=== PATIENT | female | born 1945 | race Caucasian/White ===

== ENCOUNTER → 2016-11-30 | Outpatient (CLI) | payer MEDICARE, BC ==
--- NOTE | 2016-12-02 07:59 | MM ---
Reason for exam: screening (asymptomatic). Last mammogram was performed 1 year and 1 month ago. History: Patient is postmenopausal and has history of other cancer at age 29. Took estrogen for 2 years. Took progesterone for 2 years. Physical Findings: A clinical breast exam by your physician is recommended on an annual basis and results should be correlated with mammographic findings. MG 3D Screening Mammo W/Cad Bilateral CC and MLO view(s) were taken. Prior study comparison: November 10, 2015, bilateral MG screening mammo w CAD. November 08, 2014, bilateral MG screening mammo w CAD. September 28, 2013, bilateral digital screening mammo w/CAD. There are scattered fibroglandular densities. Finding: There are typically benign vascular, round calcifications in both breasts, greater in the left breast. There is no discrete abnormality. ASSESSMENT: Benign, BI-RAD 2 RECOMMENDATION: Routine screening mammogram of both breasts in 1 year.
== END ==
LOC: RADMAMWWP 11:14
PROVIDERS: ATTEND Obstetrics & Gynecology
DX: Z12.31 Encounter for screening mammogram for malignant neoplasm of breast (principal)
CPT/HCPCS: 77063; G0202

== ENCOUNTER → 2016-12-01 | Outpatient (CLI) | payer MEDICARE, BC | END | disposition home or self-care (01) | LOC: LABPAT 14:06 | PROVIDERS: ATTEND Family Medicine | DX: Z01.810 Encounter for preprocedural cardiovascular examination (principal) | CPT/HCPCS: 93005 ==

== ENCOUNTER → 2016-12-04 | Outpatient (CLI) | payer MEDICARE, BC ==
[2016-12-04 09:35] LABS: Basophils % (A) 1 %; CH 30.2; Eosinophils # (A) 0.1 k/uL (0-0.7); Eosinophils % (A) 3 %; HCT 40.6 % (34.0-46.0); HDW 2.02; Luc # (Auto) 0.16; Luc % (Auto) 3; Lymphocytes # (A) 2.3 k/uL (1.0-4.8); Lymphocytes % (A) 40 %; MCH 30.2 pg (25.0-35.0); MCHC 31.9 g/dL (31.0-37.0); MCV 94.8 fL (80.0-100.0); Mean Platelet Volume 7.7; Monocytes # (A) 0.4 k/uL (0-1.0); Monocytes % (A) 6 %; Neutrophils # (A) 2.7 k/uL (1.3-7.7); Neutrophils % (A) 48 %; RBC 4.29 m/uL (3.80-5.40); RDW 12.8 % (11.5-15.5); WBC 5.7 k/uL (3.8-10.6); WBC (Perox) 5.85
[2016-12-04 09:51] LABS: Anion Gap 9 mmol/L; Blood Urea Nitrogen 15 mg/dL (7-17); Carbon Dioxide 26 mmol/L (22-30); Chloride 106 mmol/L (98-107); Non-African American GFR(MDRD) >60 (>60 ml/min/1.73 sqM); Potassium 3.8 mmol/L (3.5-5.1); Sodium 141 mmol/L (137-145)
== END ==
LOC: LABWHC1 08:56
PROVIDERS: ATTEND Obstetrics & Gynecology
DX: Z01.812 Encounter for preprocedural laboratory examination (principal); R35.0 Frequency of micturition; N81.10 Cystocele, unspecified; N81.4 Uterovaginal prolapse, unspecified
CPT/HCPCS: 80051; 82565; 84520; 85025; 86850; 86900; 86901; 87086

== ENCOUNTER 2016-12-14 07:25 | Day surgery (SDC) | payer MEDICARE, BC ==
[2016-12-02 12:07] VITALS: BMI 31.4
[~2016-12-14 07:25] MED LIST: DEXAMETHASONE SOD PHOSPHATE 10 MG/ML 1 ML VIAL IV ONE; LIDOCAINE 1% 20 ML VIAL (10MG/ML) FOR IV START INTRADERMA PRN; MIDAZOLAM 2 MG/2 ML VIAL IV PRN; ONDANSETRON 4 MG/2 ML VIAL IVP ONE; SCOPOLAMINE 1.5MG/72HR PATCH TRANSDERM ONE; ceFAZolin 2 GM in SODIUM CHLORIDE 0.9% 100 ML IVPB ONE
[2016-12-14] MEDS: LACTATED RINGERS 1,000 ML IV SCH (08:00)
[2016-12-14] MEDS ORDERED: fentaNYL (PF) 50 MCG/ML 2 ML AMP ONE (10:32)
[2016-12-14] MEDS ORDERED: SUCCINYLCHOLINE CHLORIDE 100 MG/5 ML SYR IV ONE (10:32)
[2016-12-14] MEDS ORDERED: PROPOFOL 10 MG/ML 20 ML VIAL IV ONE (10:32)
[2016-12-14] MEDS ORDERED: ONDANSETRON 4 MG/2 ML VIAL ONE (10:32)
[2016-12-14] MEDS ORDERED: LIDOCAINE 1% INJ 10MG/ML (20 ML MDV) ONE (10:32)
[2016-12-14] MEDS ORDERED: MIDAZOLAM 2 MG/2 ML VIAL ONE (10:32)
[2016-12-14] MEDS ORDERED: GLYCOPYRROLATE 0.2 MG/ML 2 ML VIAL ONE (10:32)
[2016-12-14] MEDS ORDERED: SODIUM CHLORIDE 0.9% 50 ML with ceFAZolin 2,000 MG IV ONE ×2 (10:36)
[2016-12-14] MEDS ORDERED: VASOPRESSIN 20 UNIT/ML 1 ML VIAL SQ ONE (10:56)
[2016-12-14] MEDS ORDERED: BACITRACIN OINT 1 EACH PACKET TOPICAL ONE (10:57)
[2016-12-14] MEDS ORDERED: LACTATED RINGERS 1,000 ML IV ONE (11:01)
--- NOTE | 2016-12-14 11:44 | P.OP ---
Date of Procedure: 12/14/16 Preoperative Diagnosis: Grade 4 cystocele, uterine prolapse. Postoperative Diagnosis: Same Procedure(s) Performed: Vaginal hysterectomy, anterior colporrhaphy. Anesthesia: HANNAHA Surgeon: Asuncion Burnett [employer] Machine Operator #1: Donnie Mares Estimated Blood Loss (ml): 50 IV fluids (ml): 550 Urine output (ml): 325 Pathology: other (Cervix and uterus) Condition: stable Disposition: PACU Description of Procedure: Patient is brought to the operative suite and a spinal with Duramorph is given. Antibiotics are received. She is placed in the dorsal lithotomy position. The cervix vagina perineum and periurethral areas are all prepped and draped in usual sterile fashion. The appropriate timeout was performed to assure proper patient and procedural identification. Weighted speculum was placed into the vagina. Anterior lip of the cervix is grasped with a double-tooth tenaculum. Bladder is drained for approximately 325 mL of clear yellow urine. The cervix is injected circumferentially with a dilute Pitressin solution. A [place] blade scalpel is used to incise the mucosa circumferentially with a V like positioning in the back. Sponge rolled finger is used to sweep the anterior mucosa from the underlying fascial plane. Peritoneum was entered posteriorly at 6:00 and suture tied with 2-0 Vicryl. The large billed speculum is then placed into the peritoneal cavity. Again, the sponge rolled finger is used to at all times keep the mucosa swept well from the operative field to avoid bladder and/or ureteral injury. The right uterosacral cardinal ligament complex is identified, clamped cut and held laterally with a hemostat. The uterosacral ligament on the left side is approached in the same fashion. Uterine vasculature is identified, clamped cut and suture ligated. Please note that 0 Vicryl sutures used in the entire hysterectomy portion of this procedure. 2 additional pedicles are taken superior to the vessels. The anterior peritoneum is entered. The uterus is "walked out" posteriorly. Philip clamps are used across the final pedicles and the uterus and cervix are removed and sent to pathology. These pedicles are tied with 0 Vicryl suture, flashed, and retied for excellent hemostasis. No masses or cysts are noted in the peritoneal cavity. Hemostasis is excellent. The previously placed 2-0 Vicryl suture is then brought around in a circumferential fashion to close the peritoneum. The previously held uterosacral cardinal ligament complex these are brought across to incorporate the opposite complex as well as vaginal mucosa. 2 additional rkgaon-wr-svolr sutures of 0 Vicryl are placed posterior to this to close the vaginal cough. Allis clamps are used now to grasp the mucosa at the 12:00 area. It is injected with a dilute Pitressin solution. It is opened with Metzenbaum scissors with care to undermine the mucosa carefully as to not damage the bladder wall. A sponge rolled finger is used to sweep the underlying mucosa from the overlying fascial edges. Easton catheter is placed and urine is noted to be clear. Metzenbaum scissors are used to trim the redundant mucosa. 2-0 Vicryl sutures used in a running locking fashion to close the vaginal cuff. Hemostasis is excellent. Vagina is packed with one-inch iodophor gauze. Easton is noted to be draining clear urine. Patient is brought back to recovery room in very good condition with stable vital signs including blood pressure 91/46, pulse 62, 98% O2 saturation.
[2016-12-14] MEDS ORDERED: diphenhydrAMINE 50 MG/ML 1 ML VIAL IVP PRN (11:45)
[2016-12-14] MEDS ORDERED: ZOLPIDEM 5 MG TAB PO PRN (11:45)
[2016-12-14] MEDS ORDERED: ONDANSETRON 4 MG/2 ML VIAL IVP PRN (11:45)
[2016-12-14] MEDS: KETOROLAC 30 MG/ML 1 ML VIAL IVP PRN (12:07)
[2016-12-14] MEDS: HYDROmorphone 1 MG/ML 1 ML SYRINGE IVP PRN ×2 (12:17→12:30)
[2016-12-15] MEDS: LACTATED RINGERS 1,000 ML IV SCH (02:06)
[2016-12-15] MEDS: SIMETHICONE 80 MG CHEWABLE PO PRN ×3 (02:14→10:20)
--- NOTE | 2016-12-15 08:14 | P.DS ---
Providers Date of admission: 12/14/16 Expected date of discharge: 12/15/16 Attending physician: Asuncion Burnett Primary care physician: [facility] Course: This is a 69-year-old white female who presented with increasing perineal bulge. Patient was noted to have a large cystocele as well as uterine prolapse. After thorough consultation she elected to proceed with surgical repair. Please see my admitting history and physical for details. Patient was admitted and underwent vaginal hysterectomy and anterior colporrhaphy. She did very well intraoperatively, a spinal with Duramorph was placed. Please see my dictated operative note for details. Postoperatively the patient has been doing very well. She is passing flatus and ambulating without difficulty. Vaginal packing and Easton catheter had been removed. We are awaiting bladder training. Her chest is clear, extremities negative, pain is well controlled. There is only scant vaginal drainage. No CVA tenderness. Plan is for discharge home later today pending successful bladder training. Patient will follow-up with me in the office in 2 weeks. She is in very good condition for discharge home. She will use [id number] pain medications as needed. I reminded her no vacuuming, no intercourse, no heavy lifting, no driving for 2 weeks. She will use [id number] pain medications as needed for pain. Her pain scale this morning is 0. I've asked her to call me with any copious or bloody vaginal drainage, with any pain not alleviated by over-the -counter medications, with any fevers shakes or chills, or indeed with any questions or concerns. Patient Condition at Discharge: Good Plan - Discharge Summary Discharge Medication List Amitriptyline HCl [Elavil] 25 mg PO HS PRN 11/25/15 [History] Etodolac [Lodine XR] 500 mg PO BID PRN 11/25/15 [History] Melatonin 5 mg PO HS 11/25/15 [History] Mometasone Inhalr 220 Mcg/Puff [Asmanex] 1 puff INHALATION BID PRN 11/25/15 [ History] Multivitamins, Thera [Multivitamin] 1 tab PO DAILY 11/25/15 [History] Olmesartan/Hydrochlorothiazide [Benicar Hct 20-12.5 mg Tablet] 1 tab PO QAM PRN 11/25/15 [History] [place]-3 Fatty Acids/Fish Oil [Fish Oil 1,000 mg Softgel] 1 each PO QAM 11/25/15 [History] Potassium 99 mg PO QAM 11/25/15 [History] Simvastatin [Zocor] 20 mg PO HS 11/25/15 [History] Cetirizine HCl [Zyrtec] 10 mg PO DAILY 12/02/16 [History] Follow up Appointment(s)/Referral(s): Asuncion Burnett MD [STAFF PHYSICIAN] - 2 Weeks
--- NOTE | 2016-12-15 08:53 | P.PN ---
Progress Note - Text Date:12/15 Time:710am Patient is status post vaginal hystrectomy. Patient seen this morning with VAS score of 0. c/o of pruritus, c/o nause, comfortable and doing well.
[2016-12-15 09:03] VITALS: BP 114/69; RESP 20
[2016-12-15] MEDS: KETOROLAC 30 MG/ML 1 ML VIAL IVP PRN (10:18)
[2016-12-15 10:30] VITALS: TEMP 98.2
[2016-12-15] MEDS ORDERED: ACETAMINOPHEN TAB 325 MG TAB PO PRN (11:46)
[2016-12-15 13:40] VITALS: PULSE 64
== END 2016-12-15 13:10 | disposition home or self-care (01) ==
LOC: OR 07:25 → 6PED 11:30 → OR 12-15 13:10
PROVIDERS: ATTEND Obstetrics & Gynecology
DX: N81.4 Uterovaginal prolapse, unspecified (principal); N80.0 Endometriosis of uterus; D25.9 Leiomyoma of uterus, unspecified; I10 Essential (primary) hypertension; Z79.899 Other long term (current) drug therapy; Z88.1 Allergy status to other antibiotic agents; J45.909 Unspecified asthma, uncomplicated; N39.3 Stress incontinence (female) (male); M79.7 Fibromyalgia; E78.2 Mixed hyperlipidemia
CPT/HCPCS: 88307; 57240; 58260; J2250; J1200; J1100; J2405; J2001; J3010; J1885 ×2; J1170; J0690; J0330; J2704; 86850; 86900; 86901

== ENCOUNTER → 2017-12-20 | Outpatient (CLI) | payer MEDICARE, BC ==
--- NOTE | 2017-12-20 08:57 | BD ---
EXAMINATION TYPE: MG DEXA axial skeleton. DATE OF EXAM: 12/20/2017 COMPARISON: DEXA bone scan January 19, 2013 CLINICAL HISTORY: post menopausal Height: 5'3 Weight: 177 FRAX RISK QUESTIONS: Alcohol (3 or more units per day): no Family History (Parent hip fracture): no Glucocorticoids (More than 3mos): no (Ex: prednisone, prednisolone, methylprednisolone, dexamethasone, and hydrocortisone). History of Fracture in Adulthood: no Secondary Osteoporosis: 1. Type 1 Diabetes: no 2. Hyperthyroidism: no 3. Menopause before 45: no 4. Malnutrition: no 5. Chronic liver disease: no Rheumatoid Arthritis: no Current Tobacco Use: no RISK FACTORS HISTORY OF: Postmenopausal woman: MEDICATIONS: Additional Medications: arthritis, blood pressure, cholesterol Additional History: skin cancer EXAM MEASUREMENTS: Bone mineral densitometry was performed using the [employer] System. Bone mineral density as measured about the Lumbar spine is: ----- L1-L4(G/cm2): 1.290 T Score Values are as follows: ----- L2: 1.3 ----- L3: 0.9 ----- L4: 1.4 ----- L1-L4: 0.9 Bone mineral density has: Decreased -2.1% since study of: 01/19/2013 Bone mineral density about the R hip (g/cm2): 0.943 Bone mineral density about the L hip (g/cm2): 0.903 T Score values are as follows: -----R Neck: -0.7 -----L Neck: -1.0 -----R Total: -0.4 -----L Total: -0.7 Bone mineral density has: Decreased -2.3% since study of: 01/19/2013 IMPRESSION: Normal (Values between +1 and -1 indicate normal bone mass). Consider repeating this study in 5 year s or sooner if there is some new clinical indication. NOTE: T-SCORE=SD OF THE YOUNG ADULT MEAN.
--- NOTE | 2017-12-22 11:09 | MM ---
Reason for exam: screening (asymptomatic). Last mammogram was performed 1 year and 1 month ago. History: Patient is postmenopausal and has history of other cancer at age 29. Took estrogen for 2 years. Took progesterone for 2 years. Physical Findings: A clinical breast exam by your physician is recommended on an annual basis and results should be correlated with mammographic findings. MG 3D Screening Mammo W/Cad Bilateral CC and MLO view(s) were taken. Prior study comparison: November 30, 2016, bilateral MG 3d screening mammo w/cad. November 10, 2015, bilateral MG screening mammo w CAD. There are scattered fibroglandular densities. No significant changes when compared with prior studies. ASSESSMENT: Negative, BI-RAD 1 RECOMMENDATION: Routine screening mammogram of both breasts in 1 year.
== END | disposition home or self-care (01) ==
LOC: RADMAMWWP 08:00
PROVIDERS: ATTEND Family Medicine
DX: Z12.31 Encounter for screening mammogram for malignant neoplasm of breast (principal); Z78.0 Asymptomatic menopausal state
CPT/HCPCS: 77063; 77067; 77080

== ENCOUNTER → 2019-01-08 | Outpatient (CLI) | payer MEDICARE, BC ==
--- NOTE | 2019-01-09 14:35 | MM ---
Reason for exam: screening (asymptomatic). Last mammogram was performed 1 year and 1 month ago. History: Patient is postmenopausal and has history of other cancer at age 29. Took estrogen for 2 years. Took progesterone for 2 years. Physical Findings: A clinical breast exam by your physician is recommended on an annual basis and results should be correlated with mammographic findings. MG 3D Screening Mammo W/Cad Bilateral CC and MLO view(s) were taken. Prior study comparison: December 20, 2017, bilateral MG 3d screening mammo w/cad. November 30, 2016, bilateral MG 3d screening mammo w/cad. There are scattered fibroglandular densities. Benign appearing bilateral calcifications. No suspicious abnormality. No significant changes when compared with prior studies. ASSESSMENT: Benign, BI-RAD 2 RECOMMENDATION: Routine screening mammogram of both breasts in 1 year.
== END | disposition home or self-care (01) ==
LOC: RADMAMWWP 16:32
PROVIDERS: ATTEND Family Medicine
DX: Z12.31 Encounter for screening mammogram for malignant neoplasm of breast (principal)
CPT/HCPCS: 77063; 77067

== ENCOUNTER → 2020-04-16 | Outpatient (CLI) | payer MEDICARE, BC ==
--- NOTE | 2020-04-16 15:44 | BD ---
EXAMINATION TYPE: Axial Bone Density DATE OF EXAM: 04/16/2020 COMPARISON: 12.20.2017 CLINICAL HISTORY: 75 YR OLD FEMALE......ICD-10 CODE: Z78.0 MENOPAUSAL Height: 61.8 Weight: 160 FRAX RISK QUESTIONS: Glucocorticoids (More than 3mos): YES, FOR MANY YRS (Ex: prednisone, prednisolone, methylprednisolone, dexamethasone, and hydrocortisone). RISK FACTORS HISTORY OF: Diet low in dairy products/other sources of calcium: YES, A BIT LOW Postmenopausal woman: YES, AT 52 YRS OLD Lost more than 2 inches in height since high school: YES Hyperparathyroidism: NO Adrenal Insufficiency: NO MEDICATIONS: Prednisone or other steroids: YES, FOR ASTHMA, X2 TYPES FOR MANY YRS Additional Medications: BP MEDS, ELAVIL FOR FOOT PAIN PRN, STATIN FOR CHOLESTEROL, VIT D Additional History: HYPERTENSION, FOOT PAIN, ARTHRITIS, EXAM MEASUREMENTS: Bone mineral densitometry was performed using the [employer] System. Bone mineral density as measured about the Lumbar spine is: ----- L1-L4(G/cm2): 1.371 T Score Values are as follows: ----- L1: 0.5 ----- L2: 2.4 ----- L3: 2.1 ----- L4: 1.5 ----- L1-L4: 1.6 Bone mineral density has: Increased 6.4% SINCE: 12.20.2017 Bone mineral density about the R hip (g/cm2): 0.970 Bone mineral density about the L hip (g/cm2): 0.894 T Score values are as follows: -----R Neck: -0.8 -----L Neck: -1.1 -----R Total: -0.3 -----L Total: -0.9 Bone mineral density has: Decreased -0.7% SINCE: 12.20.2017 FRAX%s: THERE IS A 23.5% CHANCE FOR A MAJOR OSTEOPOROTIC FX AND A 4.3% FOR HIP.....PROBABILITY FOR FX IN 10 YRS TIME IMPRESSION: Osteopenia (T Score between -2.5 and -1). There is slightly increased risk of fracture and the patient may be considered for treatment. Re-Screen 2-5 years. NOTE: T-SCORE=SD OF THE YOUNG ADULT MEAN.
--- NOTE | 2020-04-17 10:55 | MM ---
Reason for exam: screening (asymptomatic). Last mammogram was performed 1 year and 3 months ago. History: Patient is postmenopausal and has history of other cancer at age 29. Took estrogen for 2 years. Took progesterone for 2 years. Physical Findings: A clinical breast exam by your physician is recommended on an annual basis and results should be correlated with mammographic findings. MG 3D Screening Mammo W/Cad Bilateral CC and MLO view(s) were taken. Prior study comparison: January 08, 2019, bilateral MG 3d screening mammo w/cad. December 20, 2017, bilateral MG 3d screening mammo w/cad. There are scattered fibroglandular densities. Benign left sided oil cyst calcifications. No significant changes when compared with prior studies. ASSESSMENT: Negative, BI-RAD 1 RECOMMENDATION: Routine screening mammogram of both breasts in 1 year.
== END | disposition home or self-care (01) ==
LOC: RADMAMWWP 13:35
PROVIDERS: ATTEND Family Medicine
DX: Z12.31 Encounter for screening mammogram for malignant neoplasm of breast (principal); M85.80 Other specified disorders of bone density and structure, unspecified site; Z78.0 Asymptomatic menopausal state
CPT/HCPCS: 77063; 77067; 77080

== ENCOUNTER 2020-11-23 15:17 | Observation (INO) | payer MEDICARE, BC ==
[2020-11-23 15:26] VITALS: RESP 18
--- NOTE | 2020-11-23 15:54 | ED ---
General Adult HPI - General Chief complaint: Syncope Stated complaint: near syncope Time Seen by Provider: 11/23/20 15:53 Source: patient, family, EMS Mode of arrival: EMS Limitations: no limitations - History of Present Illness Initial comments: Patient presents to the ED by ambulance for evaluation with her and daughter at bedside. Patient states that she was sitting down and drinking coffee after eating dinner and dessert late this afternoon when she suddenly became lightheaded, diaphoretic, clammy and nauseated. Patient's family states that they walked the patient over to the couch where she laid down. Patient's daughter states that she is a nurse and attempted to obtain a blood pressure reading, but she was unable to, so she called for an ambulance. Patient states that she never lost consciousness and family confirms this. Patient states that she began to feel better by the time EMS arrived, and she states that she now feels completely fine, back to normal and completely asymptomatic. Patient states that she has otherwise felt fine yesterday and today. Patient denies any recent illness, fever or chills, trauma or injury, headache, focal numbness/weakness/neuro deficit, chest pain or pressure, dyspnea, cough or cold symptoms, palpitations, abdominal pain, vomiting or diarrhea, bloody or melanotic stool, dysuria or urinary symptoms, or any other symptoms or complaints. Patient denies any recent changes in her medications. - Related Data Home Medications Medication Instructions Recorded Confirmed Amitriptyline HCl [Elavil] 25 mg PO HS PRN 11/25/15 12/14/16 Etodolac [Lodine XR] 500 mg PO BID PRN 11/25/15 12/14/16 Melatonin 5 mg PO HS 11/25/15 12/14/16 Mometasone Inhalr 220 Mcg/Puff 1 puff INHALATION BID PRN 11/25/15 12/02/16 [Asmanex] Multivitamins, Thera [Multivitamin] 1 tab PO DAILY 11/25/15 12/14/16 Olmesartan/Hydrochlorothiazide 1 tab PO QAM PRN 11/25/15 12/02/16 [Benicar Hct 20-12.5 mg Tablet] [place]-3 Fatty Acids/Fish Oil [Fish 1 each PO QAM 11/25/15 12/14/16 Oil 1,000 mg Softgel] Potassium 99 mg PO QAM 11/25/15 12/14/16 Simvastatin [Zocor] 20 mg PO HS 11/25/15 12/14/16 Cetirizine HCl [Zyrtec] 10 mg PO DAILY 12/02/16 12/14/16 Allergies Allergy/AdvReac Type Severity Reaction Status Date / Time Topical antibiotic Allergy redness, Uncoded 11/23/20 15:26 swelling, itchy Review of Systems ROS Statement: Those systems with pertinent positive or pertinent negative responses have been documented in the HPI. ROS Other: All systems not noted in ROS Statement are negative. 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 bilateral bunionectomy: right 11/27/12 & left 12/02/14. 1971 vein ligation left leg, carpal tunnel release bilateral; 2003 ovaries removed; 2004 incision hernia repair Past Anesthesia/Blood Transfusion Reactions: Motion Sickness Past Psychological History: No Psychological Hx Reported Past Alcohol Use History: None Reported Past Drug Use History: None Reported - Past Family History Mother Family Medical History: Cancer, Hypertension Additional Family Medical History / Comment(s): . Father Family Medical History: Cancer Additional Family Medical History / Comment(s): leukemia General Exam Limitations: no limitations General appearance: alert, in no apparent distress Head exam: Present: atraumatic, normocephalic Eye exam: Present: normal appearance, PERRL, EOMI ENT exam: Present: mucous membranes moist Neck exam: Present: other (Trachea is in midline) Respiratory exam: Present: normal lung sounds bilaterally. Absent: respiratory distress, wheezes, rales, rhonchi, stridor Cardiovascular Exam: Present: regular rate, normal rhythm, normal heart sounds, other (Normal radial pulses bilaterally) GI/Abdominal exam: Present: soft. Absent: distended, tenderness, guarding Extremities exam: Absent: tenderness, pedal edema, calf tenderness Neurological exam: Present: alert, oriented X3, CN II-XII intact. Absent: motor sensory deficit Psychiatric exam: Present: normal affect, normal mood Skin exam: Present: warm, dry, intact, normal color Course Vital Signs 11/23/20 11/23/20 15:18 17:31 Temperature 98.3 F 98.9 F Pulse Rate 71 68 Respiratory 18 18 Rate Blood Pressure 127/75 127/67 O2 Sat by Pulse 97 98 Oximetry - Reevaluation(s) Reevaluation #1: 11/23/20 18:13 Patient continues to deny having any symptoms while in the ED. Patient remains alert and breathing comfortably with a normal room air oxygen saturation. Patient remains in a sinus rhythm on the environmental monitoring technician. Patient and family are with the patient's test results, and they all agree with hospital admission at this time for cardiac monitoring and further evaluation. 11/23/20 18:19 Case, H&P, test results and ED management were discussed with Dr. Hurtado. She accepts hospital admission. She has no further recommendations at this time. EKG Findings - EKG Comments: EKG Findings:: Normal sinus rhythm with a single PVC, ventricular rate of 60 bpm, right bundle branch block, normal OH interval, QRS duration of 164 ms, normal QT interval, normal axis, no significant change when compared to 12/01/2016 EKG Medical Decision Making - Medical Decision Making Patient has been asymptomatic while in the ED. Patient has been in and a normal sinus rhythm on the environmental monitoring technician while in the ED. Patient's labs and chest x-ray fairly unremarkable. Still given the patient's near syncopal episode, abnormal (although unchanged) EKG and risk factors, will admit the patient to the hospital for cardiac monitoring and further evaluation. Dr. Hurtado has accepted hospital admission. - Lab Data Result diagrams: 11/23/20 15:36 11/23/20 16:18 Lab Results 11/23/20 11/23/20 11/23/20 Range/Units 15:36 16:18 16:18 WBC 6.6 (3.8-10.6) k/uL RBC 4.34 (3.80-5.40) m/uL Hgb 13.5 (11.4-16.0) gm/dL Hct 39.7 (34.0-46.0) % MCV 91.6 (80.0-100.0) fL MCH 31.2 (25.0-35.0) pg MCHC 34.0 (31.0-37.0) g/dL RDW 12.4 (11.5-15.5) % Plt Count 215 (150-450) k/uL MPV 8.8 Neutrophils % 50 % Lymphocytes % 40 % Monocytes % 5 % Eosinophils % 2 % Basophils % 1 % Neutrophils # 3.3 (1.3-7.7) k/uL Lymphocytes # 2.7 (1.0-4.8) k/uL Monocytes # 0.3 (0-1.0) k/uL Eosinophils # 0.2 (0-0.7) k/uL Basophils # 0.1 (0-0.2) k/uL PT 11.0 (9.0-12.0) sec INR 1.0 (<1.2) APTT 22.5 (22.0-30.0) sec Sodium 137 (137-145) mmol/L Potassium 4.5 (3.5-5.1) mmol/L Chloride 101 (98-107) mmol/L Carbon Dioxide 29 (22-30) mmol/L Anion Gap 7 mmol/L BUN 18 H (7-17) mg/dL Creatinine 0.96 (0.52-1.04) mg/dL Est GFR (CKD-EPI)AfAm 67 (>60 ml/min/1.73 sqM) Est GFR (CKD-EPI)NonAf 58 (>60 ml/min/1.73 sqM) Glucose 170 H (74-99) mg/dL Calcium 9.6 (8.4-10.2) mg/dL Magnesium 1.9 (1.6-2.3) mg/dL Total Bilirubin 0.5 (0.2-1.3) mg/dL AST 30 (14-36) U/L ALT 20 (4-34) U/L Alkaline Phosphatase 83 (38-126) U/L Troponin I (0.000-0.034) ng/mL Total Protein 6.8 (6.3-8.2) g/dL Albumin 4.1 (3.5-5.0) g/dL 11/23/20 Range/Units 16:18 WBC (3.8-10.6) k/uL RBC (3.80-5.40) m/uL Hgb (11.4-16.0) gm/dL Hct (34.0-46.0) % MCV (80.0-100.0) fL MCH (25.0-35.0) pg MCHC (31.0-37.0) g/dL RDW (11.5-15.5) % Plt Count (150-450) k/uL MPV Neutrophils % % Lymphocytes % % Monocytes % % Eosinophils % % Basophils % % Neutrophils # (1.3-7.7) k/uL Lymphocytes # (1.0-4.8) k/uL Monocytes # (0-1.0) k/uL Eosinophils # (0-0.7) k/uL Basophils # (0-0.2) k/uL PT (9.0-12.0) sec INR (<1.2) APTT (22.0-30.0) sec Sodium (137-145) mmol/L Potassium (3.5-5.1) mmol/L Chloride (98-107) mmol/L Carbon Dioxide (22-30) mmol/L Anion Gap mmol/L BUN (7-17) mg/dL Creatinine (0.52-1.04) mg/dL Est GFR (CKD-EPI)AfAm (>60 ml/min/1.73 sqM) Est GFR (CKD-EPI)NonAf (>60 ml/min/1.73 sqM) Glucose (74-99) mg/dL Calcium (8.4-10.2) mg/dL Magnesium (1.6-2.3) mg/dL Total Bilirubin (0.2-1.3) mg/dL AST (14-36) U/L ALT (4-34) U/L Alkaline Phosphatase (38-126) U/L Troponin I <0.012 (0.000-0.034) ng/mL Total Protein (6.3-8.2) g/dL Albumin (3.5-5.0) g/dL - Radiology Data Radiology results: report reviewed (Chest x-ray: No active cardiopulmonary disease, normal heart) Disposition Clinical Impression: Near syncope Disposition: ADMITTED IP TO THIS [facility] Condition: Stable Is patient prescribed a controlled substance at d/c from ED?: No Referrals: Amadou Gregg MD [Primary Care Provider] - 1-2 days Time of Disposition: 18:15
[2020-11-23] MEDS ORDERED: SODIUM CHLORIDE 0.9% 1,000 ML IV STA (16:05)
[2020-11-23 16:24] LABS: Basophils # (A) 0.1 k/uL (0-0.2); Basophils % (A) 1 %; Eosinophils # (A) 0.2 k/uL (0-0.7); Eosinophils % (A) 2 %; HCT 39.7 % (34.0-46.0); HGB 13.5 gm/dL (11.4-16.0); Lymphocytes # (A) 2.7 k/uL (1.0-4.8); Lymphocytes % (A) 40 %; MCH 31.2 pg (25.0-35.0); MCV 91.6 fL (80.0-100.0); Mean Platelet Volume 8.8; Monocytes # (A) 0.3 k/uL (0-1.0); Monocytes % (A) 5 %; Neutrophils # (A) 3.3 k/uL (1.3-7.7); Neutrophils % (A) 50 %; Platelet Count 215 k/uL (150-450); RBC 4.34 m/uL (3.80-5.40); RDW 12.4 % (11.5-15.5); WBC 6.6 k/uL (3.8-10.6)
[2020-11-23 16:35] LABS: Albumin 4.1 g/dL (3.5-5.0); Calcium 9.6 mg/dL (8.4-10.2); Magnesium 1.9 mg/dL (1.6-2.3); Potassium 4.5 mmol/L (3.5-5.1); Total Bilirubin 0.5 mg/dL (0.2-1.3); Total Protein 6.8 g/dL (6.3-8.2)
[2020-11-23 16:39] LABS: Partial Thromboplastin Time 22.5 sec (22.0-30.0)
--- NOTE | 2020-11-23 16:47 | XR ---
EXAMINATION TYPE: XR chest 2V DATE OF EXAM: 11/23/2020 COMPARISON: NONE HISTORY: Weakness TECHNIQUE: 2 views FINDINGS: Heart is normal. Lungs are clear. Diaphragm is normal. Bony thorax is intact. There are no hilar masses. There are chest leads. IMPRESSION: No active cardiopulmonary disease. Normal heart.
[2020-11-23] MEDS ORDERED: MELATONIN 5 MG TABLET PO SCH (21:00)
[2020-11-23] MEDS ORDERED: ATORVASTATIN 10 MG TAB PO SCH (21:00)
[2020-11-23] MEDS ORDERED: AMITRIPTYLINE HCL 25 MG TAB PO PRN (21:00)
--- NOTE | 2020-11-23 21:47 | CT ---
EXAMINATION TYPE: CT brain wo con DATE OF EXAM: 11/23/2020 COMPARISON: None HISTORY: syncope, hypotention CT DLP: 1086.4 mGycm Automated exposure control for dose reduction was used. Exam performed with no contrast. There is 1.5 cm area of ossification at the syed-white matter junction of the left parietal lobe. Thi s could be old arterial venous malformation. There is no mass effect nor midline shift. There is no s ign of intracranial hemorrhage. There is cerebral atrophy appropriate for age. The calvarium is intac t. The skull base is intact. There is normal aeration of the mastoid sinuses. IMPRESSION: Benign calcification in the left parietal lobe. No acute intracranial abnormality. No evidence of an infarct.
--- NOTE | 2020-11-23 23:16 | HP ---
HISTORY AND PHYSICAL 11/23/2020 CHIEF COMPLAINT: Syncope. HISTORY OF PRESENT ILLNESS: This 75-year-old woman with a past medical history of asthma, GERD, hypertension, DJD, adenoidectomy, orthopedic surgery, being followed by Dr. Gregg in the outpatient setting, apparently having a coffee after dinner and the patient was sitting down and subsequently patient become lightheaded and diaphoretic and clammy and nauseated and patient had a syncopal/presyncopal event and the blood pressure not able to be recorded by the daughter who is a nurse practitioner according to the history. The patient taken to [facility] and was admitted for further evaluation and treatment. The patient is mildly confused for few seconds after the episode according to the family. There is no history of any fever, rigors or chills. There is no history any seizures. No history any headache. No history of any contact with COVID 19 at this time. PAST MEDICAL HISTORY: Asthma, GERD, hypertension, DJD. MEDICATIONS: Prior to admission include home medications are: Zocor 20 mg, melatonin, Lodine, Elavil, potassium, multivitamins, fish oil, Zyrtec, Pulmicort, Benicar, Singulair. ALLERGIES: TOPICAL ANTIBIOTICS. FAMILY HISTORY: History of cancer, hypertension. SOCIAL HISTORY: No history of smoking. No history of alcohol. REVIEW OF SYSTEMS: ENT: No diminished vision. No diminished hearing. CARDIOVASCULAR: As mentioned earlier. RESPIRATORY: As mentioned earlier. GI no nausea or vomiting. : No dysuria. Nervous system: No numbness or weakness. Allergy/IMMUNOLOGY: No asthma or hayfever. MUSCULOSKELETAL as mentioned earlier. HEMATOLOGY/ONCOLOGY: NO history of anemia. ENDOCRINE: No history of diabetes or hypothyroidism. CONSTITUTIONAL: As mentioned earlier. DERMATOLOGY: Negative. RHEUMATOLOGY: Negative. PSYCHIATRY: As mentioned earlier. Neurology as mentioned earlier. PHYSICAL EXAMINATION: The patient is alert and oriented times three. Pulse 85, blood pressure 140/70. Respiration 18, temperature 99.9, pulse ox 96% on room air. HEENT: Conjunctivae normal. NECK: No JVD. CARDIOVASCULAR: S1, S2 muffled. RESPIRATION: Breath sounds diminished in the bases. No rhonchi. No crackles. ABDOMEN: Soft, nontender. No mass palpable. LEGS: No edema. No swelling. NERVOUS SYSTEM: Higher functions as mentioned earlier. Moves all four limbs. No focal motor or sensory deficits. Lymphatics: No lymph nodes palpable in the neck, axillae or groin. SKIN: No ulcer, rash or bleeding. JOINTS: No active deforming arthropathy. LABS: CBC within normal limits and INR is 1. Glucose 117. ASSESSMENT: 1. Syncope for evaluation, rule out cardiac arrhythmia, possibly orthostatic hypotension. 2. History of asthma. 3. History of gastroesophageal reflux disease. 4. Hypertension. 5. History of degenerative joint disease. 6. Elevated random glucose. 7. Adenoidectomy. 8. History of degenerative joint disease. 9. FULL CODE. RECOMMENDATIONS AND DISCUSSION: This 75-year-old woman who presented with multiple complex medical issues, we will monitor the patient closely. Continue the current medications, management and symptomatic treatment. I recommend resume the home medications. Orthostatic vitals. Cardiology, neurology evaluations and otherwise prognosis guarded. Further recommendations to follow. A copy of dictation being forwarded to Dr. Gregg who is the primary physician. Repeat labs we will performed tomorrow. MMODL / IJN: [id number] /
--- NOTE | 2020-11-23 23:34 | US ---
EXAMINATION TYPE: US carotid duplex BILAT DATE OF EXAM: 11/23/2020 COMPARISON: NONE CLINICAL HISTORY: syncope. Syncope EXAM MEASUREMENTS: RIGHT: Peak Systolic Velocity (PSV) cm/sec ----- Right CCA: 54.9 ----- Right ICA: 117.7 ----- Right ECA: 80.1 ICA/CCA ratio: 2.1 RIGHT: End Diastole cm/sec ----- Right CCA: 16.5 ----- Right ICA: 43.4 ----- Right ECA: 15.4 LEFT: Peak Systolic Velocity (PSV) cm/sec ----- Left CCA: 72.4 ----- Left ICA: 116.1 ----- Left ECA: 100.8 ICA/CCA ratio: 1.6 LEFT: End Diastole cm/sec ----- Left CCA: 19.7 ----- Left ICA: 41.8 ----- Left ECA: 10.2 VERTEBRALS (direction of flow): Right Vertebral: Antegrade Left Vertebral: Antegrade Rhythm: Arrhythmia No significant stenosis seen IMPRESSION: There is antegrade flow in the vertebral arteries. The images and measurements suggest close to 0% st enosis in both internal carotid arteries. Criteria for Assigning % of Stenosis / Diameter reduction (Estimation based on the indirect measurements of the internal carotid artery velocities (ICA PSV). 1. Normal (no stenosis)=ICA PSV < 125 cm/s: ratio < 2.0: ICA EDV<40 cm/s. 2. Less than 50% stenosis=ICA PSV < 125 cm/s: ratio < 2.0: ICA EDV<40 cm/s. 3. 50 to 69% stenosis=ICA PSV of 125 to 230 cm/s: ration 2.0 ? 4.0: ICA EDV 40-100 cm/s. 4. Greater than 70% stenosis to near occlusion= ICA PSV > 230 cm/s: ratio > 4.0: ICA EDV > 100 cm/s. 5. Near occlusion= ICA PSV velocities may be low or undetectable: variable ratio and ICA EDV. 6. Total occlusion=unable to detect flow.
[2020-11-24] MEDS ORDERED: FLUTICASONE 110 MCG INHALER INHALATION SCH (08:00)
[2020-11-24 08:52] LABS: Basophils # (A) 0.07 X 10*3/uL (0.00-0.10); Eosinophils # (A) 0.21 X 10*3/uL (0.04-0.35); Eosinophils % (A) 2.9 %; HCT 38.5 % (37.2-46.3); HGB 12.2 g/dL (12.0-15.0); Lymphocytes % (A) 41.7 %; MCH 29.9 pg (27.0-32.0); MCHC 31.7 g/dL (32.0-37.0); MCV 94.4 fL (80.0-97.0); Mean Platelet Volume 11.9 fL (9.5-12.2); Monocytes # (A) 0.62 X 10*3/uL (0.20-1.00); Monocytes % (A) 8.6 %; Neutrophils # (A) 3.29 X 10*3/uL (1.80-7.70); Neutrophils % (A) 45.7 %; Platelet Count 210 X 10*3/uL (140-440); RBC 4.08 X 10*6/uL (4.10-5.20); RDW 12.7 % (11.5-14.5)
[2020-11-24] MEDS ORDERED: MONTELUKAST 10 MG TAB PO SCH (09:00)
[2020-11-24] MEDS ORDERED: LORATADINE 10 MG TAB PO SCH (09:00)
[2020-11-24] MEDS ORDERED: LOSARTAN 50 MG TAB PO SCH (09:00)
[2020-11-24] MEDS ORDERED: hydroCHLOROthiazide 12.5 MG CAP PO SCH (09:00)
[2020-11-24] MEDS ORDERED: MULTIVITAMINS, THERA 1 EACH TAB PO SCH (09:00)
[2020-11-24] MEDS ORDERED: NON FORMULARY DRUG (Fish Oil/Dha/Epa [Fish Oil 1,200 Mg Fish Oil] 1 EACH Capsule) PO SCH (09:00)
[2020-11-24] MEDS ORDERED: NON FORMULARY DRUG (Potassium [Potassium] 99 MG Tablet) PO SCH (09:00)
[2020-11-24] MEDS ORDERED: ETODOLAC 300 MG CAPSULE PO SCH (09:30)
[2020-11-24 11:26] LABS: African American GFR (CKD) 102.6 (60.0-200.0); Albumin 3.8 g/dL (3.80-4.90); Albumin/Globulin Ratio 2.11 (1.60-3.17); Anion Gap 4.3 mmol/L (4.00-12.00); BUN/Creat Ratio 21.67 Ratio (12.00-20.00); Calcium 8.7 mg/dL (8.7-10.3); Carbon Dioxide 27.7 mmol/L (21.6-31.8); Globulin 1.8 g/dL (1.6-3.3); Non-African American GFR(CKD) 88.5 (60.0-200.0); Potassium 3.9 mmol/L (3.5-5.5); Total Bilirubin 0.4 mg/dL (0.3-1.2); Total Protein 5.6 g/dL (6.2-8.2)
--- NOTE | 2020-11-24 11:49 | P.CRDCN ---
History of Present Illness Consult date: 11/24/20 History of present illness: HISTORY OF PRESENT ILLNESS: This is a 75-year-old female with a past medical history significant for hypertension, hyperlipidemia, and vertigo. 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 We have been asked to see the patient in consultation for syncope. Patient examined at the bedside in the emergency room. Patient states yesterday she was with her family for the . She states she was feeling fine for most of the day without any symptoms. She states around 2 PM she was sitting at the table with her family when she began to feel dizzy. She states she did not feel like the room was spinning. The patient got up and went to walk over to the couch to lay down. The patient reports feeling nauseated and sweaty that time. The patient does not think she passed out however she says that her daughter told her she did. Apparently her daughter is a nurse practitioner and tried to obtain a blood pressure which she could not and was unable to palpate her pulse. EMS was called and the patient was brought to the hospital for further evaluation. The patient also gives a further history of taking her blood pressure every day and states approximately 2-3 times a week she does not take her blood pressure medications in the morning because her blood pressure is on the lower side. She states the following day after skipping a dose when she rechecks her blood pressure it is still not elevated. EKG reveals sinus mechanism with right bundle branch block Chest xray no active cardiopulmonary disease. Normal heart. Laboratory data: WBC 7.2. Hemoglobin 12.2. Platelet count 210. D-dimer 2.36. Sodium 143. Potassium 3.9. BUN 13. Creatinine 0.6. Troponin negative 3. Current home cardiac medications include Zocor 20 mg daily and Benicar 20-12.5mg daily REVIEW OF SYSTEMS: At the time of my exam: CONSTITUTIONAL: Denies fever or chills. HEENT: Denies blurred vision, vision changes, or eye pain. Denies hemoptysis CARDIOVASCULAR: Denies chest pain. Denies orthopnea. Denies PND. Denies palpitations RESPIRATORY: Denies shortness of breath. GASTROINTESTINAL: Denies abdominal pain. Denies nausea or vomiting. HEMATOLOGIC: Denies bleeding disorders. GENITOURINARY: Denies any blood in urine. SKIN: Denies pruitis. Denies rash. PHYSICAL EXAM: VITAL SIGNS: Reviewed. GENERAL: Well-developed in no acute distress. HEENT: Head is normocephalic. Pupils are equal, round. Sclerae anicteric. Mucous membranes of the mouth are moist. Neck supple. No JVD or thyromegaly LUNGS: Respirations even and unlabored. Lungs essentially clear to auscultation bilaterally. HEART: Regular rate and rhythm. S1 and S2 heard. ABDOMEN: Soft. Nondistended. Nontender. EXTREMITIES: Normal range of motion. No clubbing or cyanosis. Peripheral pulses intact. No lower extremity edema NEUROLOGIC: Awake and alert. Oriented x 3. ASSESSMENT: Syncope, suspect vasovagal in nature Hypertension Hyperlipidemia History of vertigo Elevated d-dimer PLAN: Obtain 2-D echo to assess cardiac structure and function Discontinue hydrochlorothiazide and potassium supplementation. Continue with ARB only for BP management at this time Obtain orthostatic blood pressures Continue telemetry monitoring Obtain chest CTA to rule out pulmonary embolism Further recommendations pending patient's course Nurse practitioner note has been reviewed by physician. Signing provider agrees with the documented findings, assessment, and plan of care. 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 bilateral bunionectomy: right 11/27/12 & left 12/02/14. 1971 vein ligation left leg, carpal tunnel release bilateral; 2003 ovaries removed; 2004 incision hernia repair Past Anesthesia/Blood Transfusion Reactions: Motion Sickness Past Psychological History: No Psychological Hx Reported Past Alcohol Use History: None Reported Past Drug Use History: None Reported - Past Family History Mother Family Medical History: Cancer, Hypertension Additional Family Medical History / Comment(s): . Father Family Medical History: Cancer Additional Family Medical History / Comment(s): leukemia Medications and Allergies Home Medications Medication Instructions Recorded Confirmed Type Amitriptyline HCl [Elavil] 25 mg PO HS PRN 11/25/15 11/23/20 History Etodolac [Lodine XR] 500 mg PO DAILY 11/25/15 11/23/20 History Melatonin 5 mg PO HS 11/25/15 11/23/20 History Multivitamins, Thera [Multivitamin] 1 tab PO DAILY 11/25/15 11/23/20 History Olmesartan/Hydrochlorothiazide 1 tab PO DAILY 11/25/15 11/23/20 History [Benicar Hct 20-12.5 mg Tablet] Potassium 99 mg PO DAILY 11/25/15 11/23/20 History Simvastatin [Zocor] 20 mg PO HS 11/25/15 11/23/20 History Cetirizine HCl [Zyrtec] 10 mg PO DAILY 12/02/16 11/23/20 History Budesonide [Pulmicort Flexhaler] 1 puff INHALATION RT-DAILY 11/23/20 11/23/20 History Fish Oil/Dha/Epa [Fish Oil 1,200 1 cap PO DAILY 11/23/20 11/23/20 History mg Fish Oil] Montelukast Sodium [Singulair] 10 mg PO DAILY 11/23/20 11/23/20 History Allergies Allergy/AdvReac Type Severity Reaction Status Date / Time Topical antibiotic Allergy redness, Uncoded 11/23/20 19:10 swelling, itchy Physical Exam Vitals: Vital Signs Temp Pulse Resp BP Pulse Ox 11/24/20 06:00 50 L 18 11/24/20 04:16 97.8 F 72 18 131/97 93 L 11/23/20 22:33 98.3 F 84 18 142/86 96 11/23/20 19:30 71 18 125/78 98 11/23/20 18:40 85 18 142/71 96 11/23/20 17:31 98.9 F 68 18 127/67 98 11/23/20 15:18 98.3 F 71 18 127/75 97 Intake and Output 11/23/20 11/24/20 11/24/20 22:59 06:59 14:59 Other: Weight 73.936 kg Results 11/24/20 04:46 11/24/20 04:46 Cardiac Enzymes 11/23/20 11/23/20 11/23/20 Range/Units 16:18 16:18 22:18 AST 30 (14-36) U/L Troponin I <0.012 <0.012 (0.000-0.034) ng/mL 11/24/20 11/24/20 Range/Units 04:46 04:46 AST 20 (14-36) U/L Troponin I <0.012 (0.000-0.034) ng/mL Coagulation 11/23/20 Range/Units 16:18 PT 11.0 (9.0-12.0) sec APTT 22.5 (22.0-30.0) sec CBC 11/23/20 11/24/20 Range/Units 15:36 04:46 WBC 6.6 7.20 (3.8-10.6) k/uL RBC 4.34 4.08 L (3.80-5.40) m/uL Hgb 13.5 12.2 (11.4-16.0) gm/dL Hct 39.7 38.5 (34.0-46.0) % Plt Count 215 210 (150-450) k/uL Comprehensive Metabolic Panel 11/23/20 11/24/20 Range/Units 16:18 04:46 Sodium 137 143 (137-145) mmol/L Potassium 4.5 3.9 (3.5-5.1) mmol/L Chloride 101 111 H (98-107) mmol/L Carbon Dioxide 29 27.7 (22-30) mmol/L BUN 18 H 13.0 (7-17) mg/dL Creatinine 0.96 0.6 (0.52-1.04) mg/dL Glucose 170 H 92 (74-99) mg/dL Calcium 9.6 8.7 (8.4-10.2) mg/dL AST 30 20 (14-36) U/L ALT 20 17 (4-34) U/L Alkaline Phosphatase 83 77 (38-126) U/L Total Protein 6.8 5.6 L (6.3-8.2) g/dL Albumin 4.1 3.80 (3.5-5.0) g/dL Current Medications Generic Name Dose Route Start Last Admin Trade Name Freq PRN Reason Stop Dose Admin Amitriptyline HCl 25 mg 11/23/20 21:00 11/23/20 22:51 Amitriptyline Hcl 25 Mg Tab PO 25 mg HS PRN Administration Pain Atorvastatin Calcium 10 mg 11/23/20 21:00 11/23/20 21:46 Atorvastatin 10 Mg Tab PO 10 mg HS CALVIN Administration Etodolac 300 mg 04/05/21 09:30 11/24/20 09:46 Etodolac 300 Mg Capsule PO 300 mg TID CALVIN Administration Fluticasone Propionate 1 puff 11/24/20 08:00 11/24/20 09:51 Fluticasone 110 Mcg Inhaler INHALATION 1 puff RT-BID CALVIN Administration Loratadine 10 mg 11/24/20 09:00 11/24/20 08:51 Loratadine 10 Mg Tab PO 10 mg DAILY CALVIN Administration Losartan Potassium 100 mg 11/24/20 09:00 11/24/20 09:46 Losartan 50 Mg Tab PO 100 mg DAILY CALVIN Administration Melatonin 5 mg 11/23/20 21:00 11/23/20 21:46 Melatonin 5 Mg Tablet PO 5 mg HS CALVIN Administration Montelukast Sodium 10 mg 11/24/20 09:00 11/24/20 08:51 Montelukast 10 Mg Tab PO 10 mg DAILY CALVIN Administration Multivitamins 1 each 11/24/20 09:00 11/24/20 08:51 Multivitamins, Thera 1 Each Tab PO 1 each DAILY CALVIN Administration Non-Formulary Medication 1 cap 11/24/20 09:00 11/24/20 09:31 Fish Oil/Dha/Epa [Fish Oil 1,200 Mg Fish Oil] PO Not Given DAILY CALVIN Intake and Output 11/23/20 11/24/20 11/24/20 22:59 06:59 14:59 Other: Weight 73.936 kg 11/24/20 04:46 11/24/20 04:46
[2020-11-24] MEDS ORDERED: ENOXAPARIN 40 MG/0.4 ML SYRINGE SQ SCH (12:15)
--- NOTE | 2020-11-24 12:46 | CT ---
EXAMINATION TYPE: CT angio chest DATE OF EXAM: 11/24/2020 COMPARISON: None HISTORY: Elevated D-dimer CT DLP: 318.3 mGycm CONTRAST: CT chest with contrast and 3D reconstruction with MIP imaging is performed without and with IV Contra st, patient injected with 100 ml mL of Isovue 370. Contrast-enhanced CT of the chest was performed through the course of the pulmonary arteries with kenisha g and mediastinal window settings submitted. 3D reconstruction with MIP imaging was also performed. PULMONARY ARTERIES: The pulmonary arteries and their major tributaries are patent. I do not see chaitanya dence for sizable filling defect to suggest pulmonary embolic process. LUNGS: The lungs are clear and free of infiltrate. Granuloma right upper lobe. No evidence for atelec tasis. No pulmonary nodule or mass is detected. No pleural effusion. MEDIASTINUM: Thoracic aorta is of normal caliber,however, evaluation is limited given timing of the contrast bolus. If there is concern for thoracic aortic pathology consider PRINCE. Correlate clinicall y . The heart is not enlarged. No evidence for mediastinal mass. No mediastinal lymph nodes greater than 1cm. HILAR STRUCTURES: No evidence for mass. No hilar lymph nodes greater than 1 cm. UPPER ABDOMEN: No significant abnormality is seen. IMPRESSION: 1. No evidence for Pulmonary embolism at this time.
--- NOTE | 2020-11-24 13:12 | P.CNNES ---
History of Present Illness Consult date: 11/24/20 Requesting physician: Vernon Song Reason for Consult: Syncope History of Present Illness: Patient is a 75-year-old female came to the hospital by ambulance yesterday at 3:18 PM for a syncopal spell. Patient states that yesterday she went to her daughter's home, for dinner. She was feeling perfectly fine, had dinner, then put some dishes in the sink and then sat down and was speaking to her daughter, when she felt dizzy. She wanted to go to the other room and lay her head down, but she had made only a few steps (about 10-15 feet), when the dizziness got intensely worse and she was almost passing out. She told her , who came right over and helped her down on the couch. At that time she felt sick to [facility], sweating profusely and was very pale. She kept eyes closed. Her daughter is a nurse practitioner, who checked her blood pressure and could not get any blood pressure or a radial pulse. No report of loss of consciousness. EMS was called. When the first responders came, patient started feeling better, but by the time EMS arrived, she was feeling much better. Her blood pressure at the scene was 1:15/68, pulse rate 75, respiration 12, saturation 95%. GCS 15. Patient was alert and oriented 4 laying on the couch. Vital signs on arrival blood pressure 127/75, pulse rate 71, temperature 98.3. Chest x-ray showed no acute cardiac or related disease. Normal heart. EKG shows normal sinus rhythm with occasional PVCs. Right bundle-branch block. Carotid Doppler showed antegrade flow in both vertebral arteries. Images in measurements suggest close to 0% stenosis in both ICAs. CT head showed benign calcification in the left parietal lobe. No acute intracranial abnormality. No evidence of an infarct. Blood test shows normal CBC, PT/PTT, Chem-7, hepatic panel, troponins are negative. Solares virus PCR negative. Patient takes Elavil 25 mg at bedtime, as Zocor 20 mg, Benicar HCT 20/12.5, Lodine XR 500 mg, melatonin 5 mg, fish oil, Pulmicort and similar. Patient has been on Elavil for foot cramps 4 years. Patient has history of essential tremor. Denies any history of tobacco alcohol, no diabetes. No history of head trauma. Patient states that she has history of vertigo about 5-6 years ago along with nausea vomiting, which occurred off and on and lasted whole summer. Patient states that she was evaluated in [facility], and was told that she does have calcification on the left side, therefore the calcification seen on current computed tomography scan of head is chronic. The current symptom was somewhat different. Patient states that yesterday morning when she woke up her blood pressure was 105/60. Just before she went to her daughter's home, it was 120/60 and she took her blood pressure medication. Review of Systems Completely unremarkable at this time. Patient is of arthritis. She has tremors. All other review of systems negative. 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 bilateral bunionectomy: right 11/27/12 & left 12/02/14. 1971 vein ligation left leg, carpal tunnel release bilateral; 2003 ovaries removed; 2004 incision hernia repair Past Anesthesia/Blood Transfusion Reactions: Motion Sickness Past Psychological History: No Psychological Hx Reported Past Alcohol Use History: None Reported Past Drug Use History: None Reported - Past Family History Mother Family Medical History: Cancer, Hypertension Additional Family Medical History / Comment(s): . Father Family Medical History: Cancer Additional Family Medical History / Comment(s): leukemia Medications and Allergies Home Medications Medication Instructions Recorded Confirmed Type Amitriptyline HCl [Elavil] 25 mg PO HS PRN 11/25/15 11/23/20 History Etodolac [Lodine XR] 500 mg PO DAILY 11/25/15 11/23/20 History Melatonin 5 mg PO HS 11/25/15 11/23/20 History Multivitamins, Thera [Multivitamin] 1 tab PO DAILY 11/25/15 11/23/20 History Olmesartan/Hydrochlorothiazide 1 tab PO DAILY 11/25/15 11/23/20 History [Benicar Hct 20-12.5 mg Tablet] Potassium 99 mg PO DAILY 11/25/15 11/23/20 History Simvastatin [Zocor] 20 mg PO HS 11/25/15 11/23/20 History Cetirizine HCl [Zyrtec] 10 mg PO DAILY 12/02/16 11/23/20 History Budesonide [Pulmicort Flexhaler] 1 puff INHALATION RT-DAILY 11/23/20 11/23/20 History Fish Oil/Dha/Epa [Fish Oil 1,200 1 cap PO DAILY 11/23/20 11/23/20 History mg Fish Oil] Montelukast Sodium [Singulair] 10 mg PO DAILY 11/23/20 11/23/20 History Allergies Allergy/AdvReac Type Severity Reaction Status Date / Time Topical antibiotic Allergy redness, Uncoded 11/23/20 19:10 swelling, itchy Physical Examination - Vital Signs Vital Signs: Vital Signs Temp Pulse Resp BP Pulse Ox 11/24/20 06:00 50 L 18 11/24/20 04:16 97.8 F 72 18 131/97 93 L 11/23/20 22:33 98.3 F 84 18 142/86 96 11/23/20 19:30 71 18 125/78 98 11/23/20 18:40 85 18 142/71 96 11/23/20 17:31 98.9 F 68 18 127/67 98 11/23/20 15:18 98.3 F 71 18 127/75 97 Intake and Output 11/23/20 11/24/20 11/24/20 22:59 06:59 14:59 Other: Weight 73.936 kg On examination patient is an elderly female, very pleasant, in no acute distress. Patient is alert awake oriented to time place and person speech and language functions are normal. Attention, concentration, fund of knowledge is adequate. On cranial examination pupils are round and reactive to light, visual busby are full to confrontation, extraocular muscles are intact with no nystagmus. Face is symmetric, tongue protrudes to the midline. Palatal elev ation and sensation, hearing and shoulder shrug normal, facial sensation is normal. On muscle strength testing there is no pronator drift and the strength is completely normal in the arms and legs distally and proximally. Reflexes are 2 at the biceps and brachioradialis, 1 at the knees and 2 at ankles bilaterally and plantars are downgoing. Sensory touch is equal. No ataxia for [id number] or [id number] testing, tone and bulk of muscles normal. Gait normal. There is no carotid bruit, S1 and S2 audible, abdomen soft nontender. Peripheral pulses present. No edema. Results - Laboratory Findings CBC and BMP: 11/24/20 04:46 11/24/20 04:46 Abnormal Lab Findings: Abnormal Labs 11/23/20 11/24/20 16:18 04:46 RBC 4.08 L MCHC 31.7 L BUN 18 H Glucose 170 H Assessment and Plan Assessment: * Syncopal spell, possibly orthostatic versus vasovagal versus related to low blood pressure. * Previous history of vertigo, resolved. * Hypertension Plan: * All workup is negative. * Patient has been seen by information coordinator, and her blood pressure medications has been adjusted. * No other neurological workup indicated. * Computed tomography scan of the head showed calcification in the left parietal region, but is chronic, was also present in the CT scan of head 5-6 years ago when she had vertigo. Suggest comparison with the previous computed tomography scan of head to rule out any interval change however. * Patient is clear from neurology standpoint.
--- NOTE | 2020-11-24 17:15 | EEG ---
ELECTROENCEPHALOGRAM REPORT DATE OF SERVICE: 11/24/2020 PREAMBLE: This is a 75-year-old female with syncopal spell. This study is performed to rule out any epileptiform activity. EEG FINDINGS: This is a 21-channel routine EEG recording in a patient utilizing 10/20 international system with referential and bipolar montages. Background consists of well developed, well regulated, high-amplitude activity in 9-10 hertz alpha. Background is posterior- dominant and reactive to eye opening and closing. Photic driving response was seen with some flash frequencies. Mild drowsiness was seen with appearance of some theta frequency rhythm. Deeper stages of sleep were not seen. Some questionable rare sharp- appearing waves were seen in the left frontotemporal region. No definite arrhythmia was seen. IMPRESSION: This is a borderline EEG due to the presence of questionable rare (2) sharp-appearing waves in the left frontotemporal region. These did not appear clearly epileptiform. Suggest a prolonged, sleep-deprived EEG for further evaluation if your suspicion for seizures is high. MMODL / IJN: [id number] /
[2020-11-24 18:35] VITALS: BP 133/78; PULSE 73; TEMP 97.9
--- NOTE | 2020-11-24 18:39 | ECHOF ---
Referral Reason:syncope MEASUREMENTS -------- HEIGHT: 160.0 cm WEIGHT: 73.9 kg BP: IVSd: 1.0 cm (0.6 - 1.1) LVIDd: 4.9 cm (3.9 - 5.3) LVPWd: 1.1 cm (0.6 - 1.1) EDV(Teich): 115 ml IVSs: 1.8 cm LVIDs: 2.6 cm LVPWs: 1.9 cm %IVS Thck: 89 % ESV(Teich): 24 ml EF(Teich): 79 % %FS: 48 % SV(Teich): 92 ml RVIDd: 2.9 cm (< 3.3) IVC: 11.36 mm LALs A4C: 5.5 cm LAAs A4C: 15.2 cm LAESV A-L A4C: 36 ml LAESV MOD A4C: 34 ml Ao Diam: 3.0 cm (2.0 - 3.7) LA Diam: 3.1 cm (2.7 - 3.8) AV Cusp: 2.2 cm (1.5 - 2.6) EPSS: 0.8 cm MV E Boogie: 0.96 m/s MV DecT: 207 ms MV Dec Boone: 4.6 m/s MV A Boogie: 0.70 m/s MV E/A Ratio: 1.37 MV PHT: 60 ms AV Vmax: 1.26 m/s AV maxP.33 mmHg TR Vmax: 1.40 m/s TR maxP.89 mmHg RAP: 5.00 mmHg RVSP: 12.89 mmHg MV EF SLOPE: 75.23 mm/s (70 - 150) MV EXCURSION: 13.54 mm (> 18.000) FINDINGS -------- BBB This was a technically good study. The left ventricular size is normal. Left ventricular wall thickness is normal. Overall left vent ricular systolic function is normal with, an EF between 55 - 60 %. The right ventricle is normal in size. The left atrial size is normal. The right atrial size is normal. The aortic valve is trileaflet and appears structurally normal. The mitral valve is normal. There is trace mitral regurgitation. The tricuspid valve appears structurally normal. Trace tricuspid regurgitation present. Right alex tricular systolic pressure is normal at < 35 mmHg. There is no pulmonic regurgitation present. The aortic root size is normal. Normal inferior vena cava with normal inspiratory collapse consistent with estimated right atrial pre ssure of 5 mmHg. There is no pericardial effusion. CONCLUSIONS -------- 1. BBB 2. The left ventricular size is normal. 3. Left ventricular wall thickness is normal. 4. Overall left ventricular systolic function is normal with, an EF between 55 - 60 %. 5. There is trace mitral regurgitation. 6. Trace tricuspid regurgitation present. 7. There is no pericardial effusion. MANAGER OF CORPORATE: Lucille Cam RDCS
--- NOTE | 2020-11-26 09:16 | DS ---
DISCHARGE SUMMARY DATE OF ADMISSION: 11/23/2020 DATE OF DISCHARGE: 11/24/2020 FINAL DIAGNOSES: 1. Syncope, cause undetermined. 2. Asthma. 3. Gastroesophageal reflux disease. 4. Essential hypertension. 5. Primary osteoarthritis. 6. Colonic diverticular disease, asymptomatic. HOSPITAL COURSE: This is a patient who was at an Easter meal with the family. She just suddenly felt unwell and wanted to go to other room and then she passed out. She did come around in a few minutes, but was shortly confused for some time. The patient's telemetry did not show any arrhythmia. CT scan of the brain showed some benign calcifications in the left parietal lobe. Carotid Doppler negative for any significant stenosis. Two-D echocardiogram, EF of 55% to 60%. No other obvious abnormality reported. Chest CTA negative for PE. Care was discussed with Dr. Morocho from Neurology. EEG was done. Seizure activity could not be entirely ruled out. Care was discussed at length with the patient and with Dr. Morocho. The patient is to have seizure precautions including no driving. She will follow up with outpatient and I will repeat EEG possibly more prolonged to be done. At this point we will hold off any antiseizure medications. The patient also seen by Cardiology. No for any further intervention. Discussion and discharge planning more than 35 minutes. PHYSICAL EXAMINATION: Temperature 97.9, pulse 73, respiration 18, blood pressure 133/78, pulse ox 98% on room air. LUNGS: Clear to auscultation. CARDIOVASCULAR: First and second sounds normal. PSYCH: AO x3. Mood and affect normal. INVESTIGATIONS: Potassium 3.9, creatinine 0.6. Troponin negative. Coronavirus PCR not detected. White count 7.2, hemoglobin 12.2, platelets 210. Rest of the studies as above. CONSULTATION: 1. Dr. Abbott from Neurology. 2. [facility] from Cardiology. DISCHARGE MEDICATIONS: 1. Elavil 25 mg at bedtime p.r.n. 2. Lodine XR 500 mg p.o. daily. 3. Melatonin 5 mg p.o. at bedtime. 4. Multivitamin 1 tablet p.o. daily. 5. Zocor 20 mg at bedtime. 6. Zyrtec 10 mg p.o. daily. 7. Pulmicort 1 puff daily. 8. Fish oil 1 capsule p.o. daily. 9. Singulair 10 mg daily. 10.Cozaar 100 mg p.o. daily. FOLLOWUP: Follow with Dr. Isaac Valentino in 2 weeks. Follow up with Dr. Gregg in 1 week. Follow up with Dr. Latasha Littlejohn from Neurology in 1 week. Follow up with Dr. Christina in 2 weeks for her rheumatoid arthritis. Discussion and discharge planning more than 35 minutes. MMODL / IJN: [id number] /
== END 2020-11-24 19:12 | disposition home or self-care (01) ==
LOC: EC 15:17 → 6NMEDSUR 18:15
PROVIDERS: ADMIT Hospitalist; ATTEND Hospitalist
DX: R55 Syncope and collapse (principal); R79.89 Other specified abnormal findings of blood chemistry; R11.0 Nausea; R42 Dizziness and giddiness; R61 Generalized hyperhidrosis; I10 Essential (primary) hypertension; J45.909 Unspecified asthma, uncomplicated; K21.9 Gastro-esophageal reflux disease without esophagitis; M19.90 Unspecified osteoarthritis, unspecified site; I45.10 Unspecified right bundle-branch block; G25.0 Essential tremor; R73.09 Other abnormal glucose; Z20.822 Contact with and (suspected) exposure to COVID-19; E78.5 Hyperlipidemia, unspecified; Z79.51 Long term (current) use of inhaled steroids; Z79.899 Other long term (current) drug therapy; Z88.1 Allergy status to other antibiotic agents; Z96.653 Presence of artificial knee joint, bilateral; Z90.722 Acquired absence of ovaries, bilateral; Z98.890 Other specified postprocedural states; Z82.49 Family history of ischemic heart disease and other diseases of the circulatory system; Z80.6 Family history of leukemia
CPT/HCPCS: 96360; 99285; 36415; 94640; 95816; 93005; 93306; 85379; 80053 ×2; 83735; 84484 ×2; 85025 ×2; 85610; 85730; 87635; 71046; 93880; 70450; 71275; G0378 ×2; Q9967

== ENCOUNTER 2021-02-03 06:12 | Day surgery (SDC) | payer MEDICARE, BC ==
[2021-01-30 14:19] VITALS: BMI 27.8
[~2021-02-03 06:12] MED LIST changes: +ALPRAZolam 0.25 MG TAB PO PRN; +ALPRAZolam 0.5 MG TAB PO PRN; +ASPIRIN 325 MG TAB PO STA; +ATORVASTATIN 80 MG TAB PO STA; -DEXAMETHASONE SOD PHOSPHATE 10 MG/ML 1 ML VIAL IV ONE; -LIDOCAINE 1% 20 ML VIAL (10MG/ML) FOR IV START INTRADERMA PRN; -MIDAZOLAM 2 MG/2 ML VIAL IV PRN; +NITROGLYCERIN SL TABS 0.4 MG TAB SUBLINGUAL PRN; -ONDANSETRON 4 MG/2 ML VIAL IVP ONE; -SCOPOLAMINE 1.5MG/72HR PATCH TRANSDERM ONE; +SODIUM CHLORIDE 0.9% 1,000 ML in EMPTY BAG 1 BAG IV ONE; -ceFAZolin 2 GM in SODIUM CHLORIDE 0.9% 100 ML IVPB ONE
[2021-02-03] MEDS ORDERED: SODIUM CHLORIDE 0.9% 1,000 ML IV ONE (06:40)
[2021-02-03 06:51] VITALS: RESP 16; TEMP 98
[2021-02-03] MEDS ORDERED: LIDOCAINE 1% INJ 10MG/ML (20 ML MDV) ONE (07:21)
[2021-02-03] MEDS ORDERED: VERAPAMIL 2.5 MG/ML 2 ML AMP ONE (07:21)
[2021-02-03] MEDS ORDERED: fentaNYL (PF) 50 MCG/ML 2 ML AMP ONE (07:21)
[2021-02-03] MEDS ORDERED: MIDAZOLAM 2 MG/2 ML VIAL IV ONE (07:35)
[2021-02-03] MEDS ORDERED: fentaNYL (PF) 50 MCG/ML 2 ML AMP IV ONE (07:35)
[2021-02-03] MEDS ORDERED: LIDOCAINE 1% INJ 10MG/ML (20 ML MDV) SQ ONE (07:38)
[2021-02-03] MEDS: VERAPAMIL SYRINGE (5 MG/10 ML) INTRAARTER ONE ×2 (07:44→07:48)
[2021-02-03] MEDS ORDERED: IOPAMIDOL-370 125ML BTL INJ ONE (07:58)
[2021-02-03] MEDS ORDERED: RX INFO: IV CONTRAST WAS GIVEN 1 EACH MISC MISCELLANE PRN (08:11)
--- NOTE | 2021-02-03 08:14 | P.CARDCATH ---
Description of Procedure: PROCEDURES PERFORMED: Left heart catheterization, bilateral coronary angiography INDICATION: Abnormal stress test HISTORY: Patient is a pleasant 75-year-old female with history of hypertension, hyperlipidemia, vasovagal syncope. She had workup for a syncopal episode and had abnormal stress test showing anterior perfusion defect. CONSENT:I have discussed the risks, benefits and alternative therapies for the above-mentioned procedure and for both sedation/analgesia as well as necessary blood product administration, if indicated, as they pertain to this patient. The patient has indicated understanding and acceptance of the risks and procedures discussed. PROCEDURE: After the risks, benefits and alternatives of the above mentioned procedure explained in detail with the patient, informed consent was obtained. Patient was taken to the catheterization lab and prepped and draped in usual fashion. 1% lidocaine was used to anesthetize the right radial artery. A 6- Lebanese sheath was placed in the right radial artery using modified Seldinger technique. Left coronary angiography was performed with a 5-Lebanese JL 3.5 catheter and right coronary angiography was performed with a 5-Lebanese JR4 catheter in various views. A 5-Lebanese FR4 catheter was inserted into the left ventricle and pressure measurements were obtained. The right radial sheath was removed and a TR band was placed with hemostasis achieved. The patient tolerated the procedure well. Patient was transported back to the post catheterization holding area in stable condition. Conscious Sedation: Patient was monitored under the direct supervision of vision of myself for conscious sedation using Versed and fentanyl for a total duration of 23 minutes HEMODYNAMICS: Ao: 143/78 LV: 140/2, LVEDP 18mmHg SELECTIVE CORONARY ARTERIOGRAPHY: LEFT MAIN: The left main is a large caliber vessel which bifurcates into the LAD and circumflex. There is no significant stenosis. LEFT ANTERIOR DESCENDING CORONARY ARTERY: LAD is a large caliber vessel which wraps around to the apex. There is no significant stenosis. LEFT CIRCUMFLEX CORONARY ARTERY: Left circumflex is a moderate caliber vessel without significant stenosis. RIGHT CORONARY ARTERY: The right coronary artery is a large caliber vessel which gives off a PDA and PLV branch and is the dominant vessel. There is no significant stenosis. FINAL IMPRESSION: 1. Normal coronary arteries as described above. 2. Mildly elevated left sided filling pressures PLAN: 1. Aggressive risk factor modification per most recent ACC/AHA guidelines. 2. Follow-up in the office in 1-2 weeks.
[2021-02-03 14:07] VITALS: BP 125/58; PULSE 58
== END 2021-02-03 12:30 | disposition home or self-care (01) ==
LOC: CATHCVL 06:12
PROVIDERS: ATTEND Internal Medicine
DX: R55 Syncope and collapse (principal); R94.39 Abnormal result of other cardiovascular function study; I47.1 Supraventricular tachycardia; M06.9 Rheumatoid arthritis, unspecified; I10 Essential (primary) hypertension; E78.5 Hyperlipidemia, unspecified; I45.10 Unspecified right bundle-branch block; I49.3 Ventricular premature depolarization; Z79.899 Other long term (current) drug therapy; Z79.51 Long term (current) use of inhaled steroids
CPT/HCPCS: 93458; C1894; C1769; J2250; J2001; J3010; J1644; Q9967

== ENCOUNTER → 2021-06-30 | Outpatient (CLI) | payer MEDICARE, BC ==
--- NOTE | 2021-07-02 09:02 | MM ---
Reason for exam: screening (asymptomatic). Last mammogram was performed 1 year and 2 months ago. History: Patient is postmenopausal and has history of other cancer at age 29. Took estrogen for 2 years. Took progesterone for 2 years. Physical Findings: A clinical breast exam by your physician is recommended on an annual basis and results should be correlated with mammographic findings. MG 3D Screening Mammo W/Cad Bilateral CC and MLO view(s) were taken. XCCL view(s) were taken of the left breast. Prior study comparison: April 16, 2020, bilateral MG 3d screening mammo w/cad. January 08, 2019, bilateral MG 3d screening mammo w/cad. There are scattered fibroglandular densities. No significant changes when compared with prior studies. ASSESSMENT: Benign, BI-RAD 2 RECOMMENDATION: Routine screening mammogram of both breasts in 1 year.
== END | disposition home or self-care (01) ==
LOC: RADMAMWWP 10:57
PROVIDERS: ATTEND Family Medicine
DX: Z12.31 Encounter for screening mammogram for malignant neoplasm of breast (principal)
CPT/HCPCS: 77063; 77067

== ENCOUNTER → 2022-05-04 | Outpatient (CLI) | payer MEDICARE, BC ==
--- NOTE | 2022-05-04 11:57 | BD ---
EXAMINATION TYPE: Axial Bone Density DATE OF EXAM: 05/04/2022 COMPARISON: 2018 CLINICAL HISTORY: 77 years year old Female. ICD-10 CODE: M89.9 DISORDER OF BONE Height: 5 '2 1/2 Weight: 153 FRAX RISK QUESTIONS: Secondary Osteoporosis: RISK FACTORS HISTORY OF: Postmenopausal woman: y MEDICATIONS: Osteoporosis Medications: Which medication: Fosamax How Lon year Additional Medications: blood pressure, cholesterol, arthritis Additional History: melanoma , no treatment EXAM MEASUREMENTS: Bone mineral densitometry was performed using the [email or web address] System. Bone mineral density as measured about the Lumbar spine is: ----- L1-L4(G/cm2): 1.298 T Score Values are as follows: ----- L1: -0.4 ----- L2: 1.2 ----- L3: 1.8 ----- L4: 1.0 ----- L1-L4:1.0 Bone mineral density has: Decreased -0.4% since study of: 12/20/2017 Bone mineral density about the R hip (g/cm2): 0.918 Bone mineral density about the L hip (g/cm2): 0.864 T Score values are as follows: -----R Neck: -0.9 -----L Neck: -1.3 -----R Total: -0.2 -----L Total: -0.9 Bone mineral density has: Increased 0.1% since study of: 12/20/2017 FRAX%s: The graph provided illustrates a 17.4% chance for a major osteoporotic fx and a 3.2% chance f or the hips probability for fx in 10 years time. IMPRESSION: Normal (Values between +1 and -1 indicate normal bone mass). Consider repeating this study in 5 year s or sooner if there is some new clinical indication. NOTE: T-SCORE=SD OF THE YOUNG ADULT MEAN.
== END | disposition home or self-care (01) ==
LOC: RADBDWWP 10:02
PROVIDERS: ATTEND Family Medicine
DX: M89.9 Disorder of bone, unspecified (principal)
CPT/HCPCS: 77080

== ENCOUNTER → 2022-07-30 | Outpatient (CLI) | payer MEDICARE, BC ==
--- NOTE | 2022-08-02 10:51 | MM ---
Reason for Exam: Screening (asymptomatic). Last mammogram was performed 1 year(s) and 1 month(s) ago. Patient History: Menarche at age 12. First Full-Term at age 16. Left ovary removed at age 59. Right ovary removed at age 59. Hysterectomy at age 71. Postmenopausal. Patient has history of breast feeding. Other cancer, age 29. Patient used Estrogen for 2 years. Patient used Progesterone for 2 years. Risk Values: María 5 year model risk: 1.2%. NCI Lifetime model risk: 2.2%. Prior Study Comparison: 11/10/2015 Bilateral Screening Mammogram, [facility]. 11/30/2016 Bilateral Screening Mammogram, [facility]. 12/20/2017 Bilateral Screening Mammogram, [facility]. 01/08/2019 Bilateral Screening Mammogram, [facility]. 04/16/2020 Bilateral Screening Mammogram, [facility]. 06/30/2021 Bilateral Screening Mammogram, [facility]. Tissue Density: There are scattered fibroglandular densities. Findings: Analyzed By CAD. Bilateral calcifications are present. There is no suspicious group of microcalcifications or new suspicious mass in either breast. Overall Assessment: Benign, BI-RAD 2 Management: Screening Mammogram of both breasts in 1 year. A clinical breast exam by your physician is recommended on an annual basis and results should be correlated with mammographic findings. [facility] will attempt to contact patient to return for supplemental views and ultrasound if indicated. Electronically signed and approved by: Mino Gaston DO
== END | disposition home or self-care (01) ==
LOC: RADMAMWWP 10:48
PROVIDERS: ATTEND Family Medicine
DX: Z12.31 Encounter for screening mammogram for malignant neoplasm of breast (principal); Z78.0 Asymptomatic menopausal state; Z90.721 Acquired absence of ovaries, unilateral
CPT/HCPCS: 77063; 77067

== ENCOUNTER → 2022-11-04 | Outpatient (CLI) | payer MEDICARE, BC ==
[2022-11-04 18:11] LABS: Basophils # (A) 0.09 X 10*3/uL (0.00-0.10); Basophils % (A) 1.5 %; Eosinophils # (A) 0.16 X 10*3/uL (0.04-0.35); Eosinophils % (A) 2.7 %; HCT 40.8 % (37.2-46.3); Immature Grans, Automated 0.2 %; Lymphocytes # (A) 2.35 X 10*3/uL (0.90-5.00); Lymphocytes % (A) 39.3 %; MCH 30.3 pg (27.0-32.0); MCHC 31.9 g/dL (32.0-37.0); MCV 95.1 fL (80.0-97.0); Mean Platelet Volume 11.8 fL (9.5-12.2); Monocytes # (A) 0.65 X 10*3/uL (0.20-1.00); Monocytes % (A) 10.9 %; NRBC Per 100 WBC 0 /100 WBCS (0.0-0.0); Neutrophils # (A) 2.72 X 10*3/uL (1.80-7.70); Neutrophils % (A) 45.4 %; Platelet Count 213 X 10*3/uL (140-440); RBC 4.29 X 10*6/uL (4.10-5.20); WBC 5.98 X 10*3/uL (4.50-10.00)
[2022-11-04 18:20] LABS: ALT 24 U/L (8-44); AST 27 U/L (13-35); African American GFR (CKD) 97.2 (60.0-200.0); Albumin 4.1 g/dL (3.8-4.9); Albumin/Globulin Ratio 1.83 (1.60-3.17); Alkaline Phosphatase 81 U/L (41-126); BUN/Creat Ratio 16.35 Ratio (12.00-20.00); Blood Urea Nitrogen 11.1 mg/dL (9.0-27.0); C Reactive Protein <0.30 mg/dL (0.00-0.80); Calcium 9.4 mg/dL (8.7-10.3); Carbon Dioxide 25.5 mmol/L (20.0-27.5); Chloride 106 mmol/L (96-109); Creatine Kinase 112 U/L (26-186); Globulin 2.3 g/dL (1.6-3.3); Glucose 81 mg/dL (70-110); Non-African American GFR(CKD) 83.8 (60.0-200.0); Potassium 3.9 mmol/L (3.5-5.5); Rheumatoid Factor, Qnt <10 IU/mL (0-15); Sodium 143 mmol/L (135-145); Total Protein 6.4 g/dL (6.2-8.2)
[2022-11-04 19:45] LABS: Erythrocyte Sedimentation Rate 10 mm/Hr (0-30)
== END | disposition home or self-care (01) ==
LOC: LABWHC1 11:51
PROVIDERS: ATTEND Nurse Practitioner Acute Care
DX: M06.9 Rheumatoid arthritis, unspecified (principal); H93.19 Tinnitus, unspecified ear; R51.9 Headache, unspecified; R42 Dizziness and giddiness; R25.1 Tremor, unspecified
CPT/HCPCS: 36415; 80053; 82085; 82550; 85025; 85652; 86038; 86140; 86431

== ENCOUNTER 2023-03-13 08:10 | Emergency (ER) | payer MEDICARE, BC ==
[2023-03-13 08:14] VITALS: TEMP 98.2
[2023-03-13] MEDS ORDERED: SODIUM CHLORIDE 0.9% 1,000 ML IV STA (08:17)
--- NOTE | 2023-03-13 08:36 | ED ---
Nausea/Vomiting/Diarrhea HPI - General Chief complaint: Nausea/Vomiting/Diarrhea Stated complaint: c-diff Time Seen by Provider: 03/13/23 08:16 Source: patient, RN notes reviewed Mode of arrival: ambulatory Limitations: no limitations - History of Present Illness Initial comments: 78-year-old female presents emergency Department chief complaint of diarrhea. Patient states 5 weeks ago she has C. diff states that she's been fine up until 3 days ago she started having the same symptoms states she is achy all over complaint abdominal cramping states that she's having slimy stools. Patient denies any recent antibiotics. She states she was on antibiotics a cause her to have C. diff. Patient states that she's had body aches, possible fever. Patient denies any sick contacts. Patient has no dysuria no hematuria denies any - Related Data Home Medications Medication Instructions Recorded Confirmed Amitriptyline HCl [Elavil] 25 mg PO HS PRN 11/25/15 02/03/21 Etodolac [Lodine XR] 500 mg PO DAILY 11/25/15 02/03/21 Melatonin 5 mg PO HS 11/25/15 02/03/21 Multivitamins, Thera [Multivitamin 1 tab PO DAILY 11/25/15 02/03/21 (formulary)] Simvastatin [Zocor] 20 mg PO HS 11/25/15 02/03/21 Cetirizine HCl [Zyrtec] 10 mg PO DAILY 12/02/16 02/03/21 Budesonide [Pulmicort Flexhaler] 2 puff INHALATION RT-DAILY 11/23/20 02/03/21 Fish Oil/Dha/Epa [Fish Oil 1,200 1 cap PO DAILY 11/23/20 02/03/21 mg Fish Oil] Montelukast Sodium [Singulair] 10 mg PO DAILY 11/23/20 02/03/21 Aspirin [Adult Low Dose Aspirin EC] 81 mg PO DAILY 01/28/21 02/03/21 amLODIPine [Norvasc] 2.5 mg PO W/SUPPER 01/28/21 02/03/21 Previous Rx's Medication Instructions Recorded Losartan [Cozaar] 100 mg PO DAILY #30 tab 11/24/20 Vancomycin 125 mg PO QID #40 cap 03/13/23 metroNIDAZOLE [Flagyl] 500 mg PO TID #30 tab 03/13/23 Allergies Allergy/AdvReac Type Severity Reaction Status Date / Time Topical antibiotic Allergy redness, Uncoded 03/13/23 08:14 swelling, itchy Review of Systems ROS Statement: Those systems with pertinent positive or pertinent negative responses have been documented in the HPI. ROS Other: All systems not noted in ROS Statement are negative. Past Medical History Past Medical History: Asthma, GERD/Reflux, Hyperlipidemia, Hypertension, Osteoarthritis (OA) Additional Past Medical History / Comment(s): Asthma-"cough variant", mult skin cancer with removals, diverticular disease, bilateral feet/leg cramping, chronic sinus issues, PVC's, History of Any Multi-Drug Resistant Organisms: None Reported Past Surgical History: Adenoidectomy, Appendectomy, Hernia Repair, Hysterectomy, Joint Replacement, Orthopedic Surgery, Tonsillectomy Additional Past Surgical History / Comment(s): Bilateral salpingo-oophorectomy , anterior repair, MOHs procedures to remove skin cancer, bilateral carpal tunnel releases, bilateral total knee arthroplasties, bilateral feet bunionectomies, incisional hernia repair, L leg vein ligation, irena cataracts Past Anesthesia/Blood Transfusion Reactions: Previous Problems w/ Anesthesia, Motion Sickness Additional Past Anesthesia/Blood Transfusion Reaction / Comment(s): Pt has claustrophobia. "itching after general anesthesia with knee surgery" Past Psychological History: No Psychological Hx Reported Smoking Status: Never smoker Past Alcohol Use History: None Reported Past Drug Use History: None Reported - Past Family History Mother Family Medical History: Cancer Additional Family Medical History / Comment(s): . Father Family Medical History: Cancer Additional Family Medical History / Comment(s): leukemia General Exam Limitations: no limitations General appearance: alert, in no apparent distress Head exam: Present: atraumatic, normocephalic, normal inspection Eye exam: Present: normal appearance, PERRL, EOMI. Absent: scleral icterus, conjunctival injection, periorbital swelling ENT exam: Present: normal exam, normal oropharynx, mucous membranes moist Neck exam: Present: normal inspection, full ROM. Absent: tenderness, meningismus, lymphadenopathy Respiratory exam: Present: normal lung sounds bilaterally. Absent: respiratory distress, wheezes, rales, rhonchi, stridor Cardiovascular Exam: Present: regular rate, normal rhythm, normal heart sounds. Absent: systolic murmur, diastolic murmur, rubs, gallop, clicks GI/Abdominal exam: Present: soft, normal bowel sounds. Absent: distended, tenderness, guarding, rebound, rigid Back exam: Absent: CVA tenderness (R), CVA tenderness (L) Neurological exam: Present: alert Course Vital Signs 03/13/23 03/13/23 08:11 11:28 Temperature 98.2 F Pulse Rate 75 60 Respiratory 20 17 Rate Blood Pressure 177/73 154/70 O2 Sat by Pulse 99 99 Oximetry Medical Decision Making - Medical Decision Making Was pt. sent in by a medical professional or institution (, PA, WATER PUMPING STATION ENGINEER, urgent care, hospital, or assisted...) When possible be specific @ -No Did you speak to anyone other than the patient for history (EMS, parent, family, police, friend...)? What history was obtained from this source @ -No Did you review nursing and triage notes (agree or disagree)? Why? @ -I reviewed and agree with nursing and triage notes Were old charts reviewed (outside hosp., previous admission, EMS record, old EKG, old radiological studies, urgent care reports/EKG's, assisted records)? Report findings @ -No old charts were reviewed Differential Diagnosis (chest pain, altered mental status, abdominal pain women, abdominal pain men, vaginal bleeding, weakness, fever, dyspnea, syncope, headache, dizziness, GI bleed, back pain, seizure, CVA, palpatations, mental health, musculoskeletal)? @ -nDifferential Abdominal Pain Women: Appendicitis, Cholecystitis, diverticulosis, ischemic bowel, pancreatitis, hepatitis, UTI, gastroenteritis, AAA, incarcerated hernia, bowel obstruction, constipation, inflammatory bowel, hepatitis, peptic ulcer disease, splenic infarction, perforated viscus, vulvitis, ovarian torsion, PID, kidney stone, placenta abruption, this is not meant to be an all-inclusive listble EKG interpreted by me (3pts min.). @ -None X-rays interpreted by me (1pt min.). @ -None done CT interpreted by me (1pt min.). @ -None done U/S interpreted by me (1pt. min.). @ -None done What testing was considered but not performed or refused? (CT, X-rays, U/S, labs)? Why? @ -None What meds were considered but not given or refused? Why? @ -None Did you discuss the management of the patient with other professionals (professionals i.e. , PA, WATER PUMPING STATION ENGINEER, lab, RT, psych nurse, social services counselor, package worker, teacher, seismology technical officer, case finishing machine adjuster)? Give summary @ -No Was smoking cessation discussed for >3mins.? @ -No Was critical care preformed (if so, how long)? @ -No Were there social determinants of health that impacted care today? How? (Homelessness, low income, unemployed, alcoholism, drug addiction, transportation, low edu. Level, literacy, decrease access to med. care, [facility], rehab)? @ -No Was there de-escalation of care discussed even if they declined (Discuss DNR or withdrawal of care, Hospice)? DNR status @ -No What co-morbidities impacted this encounter? (DM, HTN, Smoking, COPD, CAD, Cancer, CVA, ARF, Chemo, Hep., AIDS, mental health diagnosis, sleep apnea, morbid obesity)? @ -C. diff Was patient admitted / discharged? Hospital course, mention meds given and ro anisa, prescriptions, significant lab abnormalities, going to OR and other pertinent info. @ -Discharged patient's laboratory is unremarkable patient had recent C. diff infection. Patient's symptoms are consistent and having profuse diarrhea. Patient was prescribed vancomycin. She did have some concern of cost as insurance did not cover most of it last time. Patient was given additional prescription. Patient advised to have recheck in 2 days return for worsening symptoms. Undiagnosed new problem with uncertain prognosis? @ -No Drug Therapy requiring intensive monitoring for toxicity (Heparin, Nitro, Insulin, Cardizem)? @ -No Were any procedures done? @ -No Diagnosis/symptom? @ -Diarrhea Acute, or Chronic, or Acute on Chronic? @ -Acute Uncomplicated (without systemic symptoms) or Complicated (systemic symptoms)? @ -Complicated Side effects of treatment? @ -No Exacerbation, Progression, or Severe Exacerbation? @ -No Poses a threat to life or bodily function? How? (Chest pain, [place], [place], pneumonia, PE, COPD, DKA, ARF, appy, cholecystitis, CVA, Diverticulitis, Homicidal, Suicidal, threat to staff... and all critical care pts) @ -No - Lab Data Result diagrams: 03/13/23 08:47 03/13/23 08:47 Lab Results 03/13/23 03/13/23 03/13/23 Range/Units 08:47 08:47 08:47 WBC 6.8 (3.8-10.6) k/uL RBC 4.10 (3.80-5.40) m/uL Hgb 12.8 (11.4-16.0) gm/dL Hct 38.9 (34.0-46.0) % MCV 94.9 (80.0-100.0) fL MCH 31.1 (25.0-35.0) pg MCHC 32.8 (31.0-37.0) g/dL RDW 13.0 (11.5-15.5) % Plt Count 198 (150-450) k/uL MPV 9.8 Neutrophils % 59 % Lymphocytes % 27 % Monocytes % 7 % Eosinophils % 3 % Basophils % 1 % Neutrophils # 4.0 (1.3-7.7) k/uL Lymphocytes # 1.8 (1.0-4.8) k/uL Monocytes # 0.5 (0-1.0) k/uL Eosinophils # 0.2 (0-0.7) k/uL Basophils # 0.1 (0-0.2) k/uL Sodium 142 (137-145) mmol/L Potassium 4.0 (3.5-5.1) mmol/L Chloride 109 H (98-107) mmol/L Carbon Dioxide 25 (22-30) mmol/L Anion Gap 8 mmol/L BUN 10 (7-17) mg/dL Creatinine 0.68 (0.52-1.04) mg/dL Est GFR (CKD-EPI)AfAm >90 (>60 ml/min/1.73 sqM) Est GFR (CKD-EPI)NonAf 84 (>60 ml/min/1.73 sqM) Glucose 91 (74-99) mg/dL Calcium 9.3 (8.4-10.2) mg/dL Total Bilirubin 0.6 (0.2-1.3) mg/dL AST 27 (14-36) U/L ALT 19 (4-34) U/L Alkaline Phosphatase 92 (38-126) U/L Total Protein 6.5 (6.3-8.2) g/dL Albumin 3.7 (3.5-5.0) g/dL Lipase 51 (23-300) U/L Urine Color Light Yellow Urine Appearance Clear (Clear) Urine pH 6.5 (5.0-8.0) Ur Specific Wh[place] 1.006 (1.001-1.035) Urine Protein Negative (Negative) Urine Glucose (UA) Negative (Negative) Urine Ketones Negative (Negative) Urine Blood Negative (Negative) Urine Nitrite Negative (Negative) Urine Bilirubin 2+ H (Negative) Urine Urobilinogen <2.0 (<2.0) mg/dL Ur Leukocyte Esterase Negative (Negative) Disposition Clinical Impression: Diarrhea, Hx of Clostridium difficile infection Disposition: HOME SELF-CARE Condition: Stable Instructions (If sedation given, give patient instructions): Acute Diarrhea (ED) Additional Instructions: Please return to the Emergency Department if symptoms worsen or any other concerns. Prescriptions: metroNIDAZOLE [Flagyl] 500 mg PO TID #30 tab Vancomycin 125 mg PO QID #40 cap Is patient prescribed a controlled substance at d/c from ED?: No Referrals: Amadou Gregg MD [Primary Care Provider] - 1-2 days Time of Disposition: 11:14
[2023-03-13 09:36] LABS: ALT 19 U/L (4-34); AST 27 U/L (14-36); African American GFR (CKD) >90 (>60 ml/min/1.73 sqM); Albumin 3.7 g/dL (3.5-5.0); Alkaline Phosphatase 92 U/L (38-126); Anion Gap 8 mmol/L; Basophils # (A) 0.1 k/uL (0-0.2); Basophils % (A) 1 %; Blood Urea Nitrogen 10 mg/dL (7-17); Calcium 9.3 mg/dL (8.4-10.2); Carbon Dioxide 25 mmol/L (22-30); Chloride 109 mmol/L (98-107); Eosinophils # (A) 0.2 k/uL (0-0.7); Eosinophils % (A) 3 %; Glucose 91 mg/dL (74-99); HCT 38.9 % (34.0-46.0); HGB 12.8 gm/dL (11.4-16.0); Lipase 51 U/L (23-300); Lymphocytes # (A) 1.8 k/uL (1.0-4.8); Lymphocytes % (A) 27 %; MCH 31.1 pg (25.0-35.0); MCHC 32.8 g/dL (31.0-37.0); MCV 94.9 fL (80.0-100.0); Mean Platelet Volume 9.8; Monocytes # (A) 0.5 k/uL (0-1.0); Monocytes % (A) 7 %; Neutrophils % (A) 59 %; Non-African American GFR(CKD) 84 (>60 ml/min/1.73 sqM); Platelet Count 198 k/uL (150-450); Sodium 142 mmol/L (137-145); Total Bilirubin 0.6 mg/dL (0.2-1.3); Total Protein 6.5 g/dL (6.3-8.2); WBC 6.8 k/uL (3.8-10.6)
[2023-03-13 10:50] LABS: Appearance,Urine Clear (Clear); Bilirubin,Urine 2+ (Negative); Blood,Urine Negative (Negative); Color,Urine Light Yellow; Glucose,Urine (UA) Negative (Negative); Ketones,Urine Negative (Negative); Leukocyte Esterase,Urine Negative (Negative); Nitrite,Urine Negative (Negative); PH, Urine 6.5 (5.0-8.0); Protein,Urine Negative (Negative); Specific Gravity,Urine 1.006 (1.001-1.035); Urobilinogen,Urine <2.0 mg/dL (<2.0)
[2023-03-13 11:29] VITALS: BP 154/70; PULSE 60; RESP 17
== END 2023-03-13 11:29 | disposition home or self-care (01) ==
LOC: EC 08:10
DX: R19.7 Diarrhea, unspecified (principal); Z86.19 Personal history of other infectious and parasitic diseases; J45.909 Unspecified asthma, uncomplicated; I10 Essential (primary) hypertension; E78.5 Hyperlipidemia, unspecified; M19.90 Unspecified osteoarthritis, unspecified site; Z88.1 Allergy status to other antibiotic agents; Z79.82 Long term (current) use of aspirin; Z79.51 Long term (current) use of inhaled steroids; Z79.899 Other long term (current) drug therapy
CPT/HCPCS: 36415; 80053; 81003; 83690; 85025; 96360; 99284

== ENCOUNTER 2024-01-27 16:42 | Emergency (ER) | payer MEDICARE, BC ==
[2024-01-27 16:57] VITALS: TEMP 98.1
--- NOTE | 2024-01-27 17:07 | ED ---
Lower Extremity Injury HPI - General Chief Complaint: Extremity Injury, Lower Stated Complaint: R Toe Injury Time Seen by Provider: 01/27/24 17:06 Source: patient, RN notes reviewed Mode of arrival: wheelchair Limitations: no limitations - History of Present Illness Initial Comments: 78-year-old female presented to the ER with a chief complaint of right foot injury. Patient states while walking today wearing tennis shoes she accidentally tripped and her right foot went under her body. She states most of her pain is in her second metatarsal. She denies any paresthesias. She denies any head injury, loss of consciousness or blood thinner use. Denies any other complaints or injuries at this time. - Related Data Home Medications Medication Instructions Recorded Confirmed Amitriptyline HCl [Elavil] 25 mg PO HS PRN 11/25/15 02/03/21 Etodolac [Lodine XR] 500 mg PO DAILY 11/25/15 02/03/21 Melatonin 5 mg PO HS 11/25/15 02/03/21 Multivitamins, Thera [Multivitamin 1 tab PO DAILY 11/25/15 02/03/21 (formulary)] Simvastatin [Zocor] 20 mg PO HS 11/25/15 02/03/21 Cetirizine HCl [Zyrtec] 10 mg PO DAILY 12/02/16 02/03/21 Budesonide [Pulmicort Flexhaler] 2 puff INHALATION RT-DAILY 11/23/20 02/03/21 Fish Oil/Dha/Epa [Fish Oil 1,200 1 cap PO DAILY 11/23/20 02/03/21 mg Fish Oil] Montelukast Sodium [Singulair] 10 mg PO DAILY 11/23/20 02/03/21 Aspirin [Adult Low Dose Aspirin EC] 81 mg PO DAILY 01/28/21 02/03/21 amLODIPine [Norvasc] 2.5 mg PO W/SUPPER 01/28/21 02/03/21 Previous Rx's Medication Instructions Recorded Losartan [Cozaar] 100 mg PO DAILY #30 tab 11/24/20 Vancomycin 125 mg PO QID #40 cap 03/13/23 metroNIDAZOLE [Flagyl] 500 mg PO TID #30 tab 03/13/23 Allergies Allergy/AdvReac Type Severity Reaction Status Date / Time Topical antibiotic Allergy redness, Uncoded 01/27/24 16:57 swelling, itchy Review of Systems ROS Statement: Those systems with pertinent positive or pertinent negative responses have been documented in the HPI. ROS Other: All systems not noted in ROS Statement are negative. Past Medical History Past Medical History: Asthma, GERD/Reflux, Hyperlipidemia, Hypertension, Osteoarthritis (OA) Additional Past Medical History / Comment(s): Asthma-"cough variant", mult skin cancer with removals, diverticular disease, bilateral feet/leg cramping, chronic sinus issues, PVC's, History of Any Multi-Drug Resistant Organisms: None Reported Past Surgical History: Adenoidectomy, Appendectomy, Hernia Repair, Hysterectomy, Joint Replacement, Orthopedic Surgery, Tonsillectomy Additional Past Surgical History / Comment(s): Bilateral salpingo-oophorectomy , anterior repair, MOHs procedures to remove skin cancer, bilateral carpal tunnel releases, bilateral total knee arthroplasties, bilateral feet bunionectomies, incisional hernia repair, L leg vein ligation, irena cataracts Past Anesthesia/Blood Transfusion Reactions: Previous Problems w/ Anesthesia, Motion Sickness Additional Past Anesthesia/Blood Transfusion Reaction / Comment(s): Pt has claustrophobia. "itching after general anesthesia with knee surgery" Past Psychological History: No Psychological Hx Reported Smoking Status: Never smoker Past Alcohol Use History: None Reported Past Drug Use History: None Reported - Past Family History Mother Family Medical History: Cancer Additional Family Medical History / Comment(s): . Father Family Medical History: Cancer Additional Family Medical History / Comment(s): leukemia General Exam Limitations: no limitations General appearance: alert, in no apparent distress Head exam: Present: atraumatic, normocephalic, normal inspection Respiratory exam: Present: normal lung sounds bilaterally. Absent: respiratory distress, wheezes, rales, rhonchi, stridor Cardiovascular Exam: Present: regular rate, normal rhythm, normal heart sounds. Absent: systolic murmur, diastolic murmur, rubs, gallop, clicks Extremities exam: Present: tenderness (Right second distal metatarsal with significant bruising and edema. 2+ right dorsalis pedis pulse. Patient has active range of motion. Noticable deformity to right 2nd MTP) Skin exam: Present: warm, dry, intact, normal color. Absent: rash Course Vital Signs 01/27/24 01/27/24 16:55 18:24 Temperature 98.1 F Pulse Rate 60 87 Respiratory 20 18 Rate Blood Pressure 187/74 202/98 O2 Sat by Pulse 98 100 Oximetry - Reevaluation(s) Reevaluation #1: 01/27/24 19:[address] Len RAYA. I discussed physical exam and xray tato allenarmando. I discussed previous attempt without success as patient was unable to tolerate pain and she would have to undergo conscious sedation for full reduction. Dr. Harrington advised on splinting and outpatient follow-up with her early next week. Medical Decision Making - Medical Decision Making Was pt. sent in by a medical professional or institution (, PA, SHOT LIGHTER, urgent care, hospital, or fpc...) When possible be specific @ -No Did you speak to anyone other than the patient for history (EMS, parent, family, police, friend...)? What history was obtained from this source @ -No Did you review nursing and triage notes (agree or disagree)? Why? @ -I reviewed and agree with nursing and triage notes Were old charts reviewed (outside hosp., previous admission, EMS record, old EKG, old radiological studies, urgent care reports/EKG's, fpc records)? Report findings @ -No old charts were reviewed Differential Diagnosis (chest pain, altered mental status, abdominal pain women, abdominal pain men, vaginal bleeding, weakness, fever, dyspnea, syncope, headache, dizziness, GI bleed, back pain, seizure, CVA, palpatations, mental health, musculoskeletal)? @ -Differential Musculoskeletal: Muscular strain, contusion, ligament sprain, fracture, arthritis, septic arthritis, bursitis, cellulitis, muscle spasm, nerve compression, DVT, arterial occlusion, herpes zoster, electrolyte abnormality, tumor.... This is not meant to be in all inclusive list EKG interpreted by me (3pts min.). @ -None X-rays interpreted by me (1pt min.). @ -Right foot x-ray interpreted me remarkable for an acute fracture of the second distal metatarsal with anterior dislocation of the MTP joint joint. CT interpreted by me (1pt min.). @ -None done U/S interpreted by me (1pt. min.). @ -None done What testing was considered but not performed or refused? (CT, X-rays, U/S, labs)? Why? @ -None What meds were considered but not given or refused? Why? @ -None Did you discuss the management of the patient with other professionals (professionals i.e. , PA, SHOT LIGHTER, lab, RT, psych nurse, health social work professor, second floor operator, teacher, liaison officer, case finishing machine adjuster)? Give summary @ -Case discussed with Dr. Len RAYA. I discussed physical exam and xray findings. I discussed previous attempt without success as patient was unable to tolerate pain. I stated to fully reduce fracture patient would have to undergo conscious sedation. Dr. Harrington advised on splinting and outpatient follow-up with her early next week. Was smoking cessation discussed for >3mins.? @ -No Was critical care preformed (if so, how long)? @ -No Were there social determinants of health that impacted care today? How? (Homelessness, low income, unemployed, alcoholism, drug addiction, transportation, low edu. Level, literacy, decrease access to med. care, long-term, rehab)? @ -No Was there de-escalation of care discussed even if they declined (Discuss DNR or withdrawal of care, Hospice)? DNR status @ -No What co-morbidities impacted this encounter? (DM, HTN, Smoking, COPD, CAD, Cancer, CVA, ARF, Chemo, Hep., AIDS, mental health diagnosis, sleep apnea, morbid obesity)? @ -None Was patient admitted / discharged? Hospital course, mention meds given and route, prescriptions, significant lab abnormalities, going to OR and other pertinent info. @ -Discharge. 78-year-old female presented to the ER with a chief complaint of right foot injury. History and physical exam completed. Vitals stable. Right lower extremity neurovascular intact. Bruising and noticeable deformity to right second metatarsal present. X-rays obtained to rule out fracture. Patient received by mouth Tylenol and tetanus vaccination and patient had abrasions to second digit. X-rays significant for an acute fracture of the second distal metatarsal with anterior dislocation of the MTP joint. Reduction attempted but unsuccessful as patient was unable to tolerate pain. Case discussed with Dr. Len RAYA who advised on splinting and outpatient follow-up if conscious sedation was needed to fully reduce fracture. Patient placed in a posterior splint. I advised patient to remain nonweightbearing. Tylenol 3 starter pack given for pain control. I advised patient to alternate ibuprofen and Tylenol threes for pain control. Strict return parameters discussed. Patient discharged in stable condition with follow-up to Dr. Harrington, referral given. Patient and verbally expressed understanding and agreement with care plan. Case discussed with ED attending, Dr. Saldaña. Undiagnosed new problem with uncertain prognosis? @ -No Drug Therapy requiring intensive monitoring for toxicity (Heparin, Nitro, Insulin, Cardizem)? @ -No Were any procedures done? @ -Yes Diagnosis/symptom? @ -Second distal metatarsal fracture with anterior dislocation of MTP joint Acute, or Chronic, or Acute on Chronic? @ -Acute Uncomplicated (without systemic symptoms) or Complicated (systemic symptoms)? @ -Uncomplicated Side effects of treatment? @ -No Exacerbation, Progression, or Severe Exacerbation? @ -No Poses a threat to life or bodily function? How? (Chest pain, [place], [place], pneumonia, PE, COPD, DKA, ARF, appy, cholecystitis, CVA, Diverticulitis, Homicidal, Suicidal, threat to staff... and all critical care pts) @ -No - Radiology Data Radiology results: report reviewed, image reviewed Disposition Clinical Impression: Fracture of second metatarsal bone Disposition: HOME SELF-CARE Condition: Stable Instructions (If sedation given, give patient instructions): Foot Fracture in Adults (ED) Additional Instructions: Please alternate ibuprofen and Tylenol threes for pain control. Follow-up with Dr. Harrington next week. Remain nonweightbearing. Return to the ER for any new or worsening concerns. Is patient prescribed a controlled substance at d/c from ED?: No Referrals: Amadou Gregg MD [Primary Care Provider] - 1-2 days Lori Harrington DPM [STAFF PHYSICIAN] - 1-2 days Time of Disposition: 19:08
[2024-01-27 18:26] VITALS: RESP 18
[2024-01-27] MEDS: ACETAMINOPHEN TAB 325 MG TAB PO STA (18:26)
[2024-01-27] MEDS: DIPH,PERTUS(ACELL)TETVAC-LF 0.5 ML VIAL IM ONE (18:28)
--- NOTE | 2024-01-27 18:33 | XR ---
EXAMINATION TYPE: XR foot complete RT DATE OF EXAM: 01/27/2024 5:57 PM CLINICAL INDICATION:Female, 78 years old with history of injury; COMPARISON: None TECHNIQUE: XR foot complete RT examined in the AP, oblique, and lateral projections. FINDINGS/IMPRESSION: 1. Acute fracture of the second digit distal metatarsal. No additional fractures visualized. There i s anterior dislocation of the metatarsophalangeal joint suggested.This does not appear to extend intr a-articularly. 2. Fixation hardware in the first metatarsal appears intact. 3. Multifocal degeneration changes throughout the joints of the foot.
--- NOTE | 2024-01-27 19:18 | ED ---
Medical Decision Making - Medical Decision Making Patient reports she has wheelchair and crutches at home and does not need any at this time. Disposition Clinical Impression: Fracture of second metatarsal bone Disposition: HOME SELF-CARE Condition: Stable Instructions (If sedation given, give patient instructions): Foot Fracture in Adults (ED) Additional Instructions: Please alternate ibuprofen and Tylenol threes for pain control. Follow-up with Dr. Harrington next week. Remain nonweightbearing. Return to the ER for any new or worsening concerns. Is patient prescribed a controlled substance at d/c from ED?: No Referrals: Amadou Gregg MD [Primary Care Provider] - 1-2 days Lori Harrington DPM [STAFF PHYSICIAN] - 1-2 days Time of Disposition: 19:17 Procedures - Orthopedic Splinting/Casting Injury #1 Side: right Lower Extremity Injury Location: foot Lower Extremity Immobilizer: posterior splint Other Orthopedic Equipment: other (pt reports she has a wheelchair and crutches at home)
[2024-01-27] MEDS: ACET/COD 300 MG/30 MG STARTER PACK 6 TAB BTL PO STA (19:22)
[2024-01-27 19:28] VITALS: BP 189/87; PULSE 56
== END 2024-01-27 19:32 | disposition home or self-care (01) ==
LOC: EC 16:42
DX: S92.321A Displaced fracture of second metatarsal bone, right foot, initial encounter for closed fracture (principal); Z23 Encounter for immunization; Z88.1 Allergy status to other antibiotic agents; W18.40XA Slipping, tripping and stumbling without falling, unspecified, initial encounter; Y93.01 Activity, walking, marching and hiking
CPT/HCPCS: 29515; 90471; 90715; 99283

== ENCOUNTER → 2024-03-27 | Outpatient (CLI) | payer MEDICARE, BC | END | disposition home or self-care (01) | LOC: LABPRL 15:15 | PROVIDERS: ATTEND Nurse Practitioner | DX: T88.8XXA Other specified complications of surgical and medical care, not elsewhere classified, initial encounter (principal) | CPT/HCPCS: 87070; 87205 ==

== ENCOUNTER 2024-06-19 08:56 | Day surgery (SDC) | payer MEDICARE, BC ==
[~2024-06-19 08:56] MED LIST changes: -ALPRAZolam 0.25 MG TAB PO PRN; -ALPRAZolam 0.5 MG TAB PO PRN; -ASPIRIN 325 MG TAB PO STA; -ATORVASTATIN 80 MG TAB PO STA; +LIDOCAINE 1% (10MG/ML) FOR IV START INTRADERMA PRN; -NITROGLYCERIN SL TABS 0.4 MG TAB SUBLINGUAL PRN; -SODIUM CHLORIDE 0.9% 1,000 ML in EMPTY BAG 1 BAG IV ONE
[2024-06-19] MEDS: IV FLUID CONTINUATION 1,000 ML IV ONE (09:14)
[2024-06-19 09:29] VITALS: RESP 16; TEMP 97.8
[2024-06-19] MEDS: LACTATED RINGERS 1,000 ML IV SCH (09:32)
[2024-06-19] MEDS ORDERED: PROPOFOL 10 MG/ML 20 ML VIAL IV ONE (10:02)
--- NOTE | 2024-06-19 10:29 | P.PCN ---
Date of Procedure: 06/19/24 Procedure(s) Performed: BRIEF HISTORY: Patient is a 79-year-old pleasant white female scheduled for an elective colonoscopy as a part of screening for colon cancer. PROCEDURE PERFORMED: Colonoscopy biopsy. PREOPERATIVE DIAGNOSIS: Screening for colon cancer. IV sedation per Anesthesia. PROCEDURE: After informed consent was obtained, the patient, was brought into the endoscopy unit. IV sedation was administered by Anesthesia under continuous monitoring. Digital rectal examination was normal. Initially the Olympus CF-160 flexible video colonoscope was then inserted in the rectum, gradually advanced into the cecum without any difficulty. Careful examination was performed as the scope was gradually being withdrawn. Ileocecal valve and the appendiceal orifice were visualized and appeared normal. Prep was excellent. Mucosa of the cecum had a 3 mm sessile polyp that was removed by cold biopsy. Rest of the, ascending colon, transverse colon, descending colon, sigmoid colon, and rectum appeared normal. Scattered sigmoid diverticulosis. Retroflexion was performed in the rectum and no lesions were seen. The patient tolerated the procedure well. IMPRESSION: 3 mm sessile cecal polyp status post cold biopsy Scattered sigmoid diverticulosis Recommendations:. Findings of this examination were discussed with the patient as well as her family. She was advised to follow-up with the biopsy results. Recommend a high-fiber diet and fiber supplements daily.
[2024-06-19 10:47] VITALS: BP 137/84; PULSE 62
== END 2024-06-19 11:01 | disposition home or self-care (01) ==
LOC: ORWHC2ENDO 08:56
PROVIDERS: ATTEND Internal Medicine Gastroenterology
DX: Z12.11 Encounter for screening for malignant neoplasm of colon (principal); D12.0 Benign neoplasm of cecum; K57.30 Diverticulosis of large intestine without perforation or abscess without bleeding; I10 Essential (primary) hypertension; E78.5 Hyperlipidemia, unspecified; I49.3 Ventricular premature depolarization; J45.909 Unspecified asthma, uncomplicated; Z79.51 Long term (current) use of inhaled steroids; Z79.83 Long term (current) use of bisphosphonates; Z79.899 Other long term (current) drug therapy
CPT/HCPCS: 88305; 45380; J2704

== ENCOUNTER → 2024-07-24 | Outpatient (CLI) | payer MEDICARE, BC ==
--- NOTE | 2024-07-24 15:19 | BD ---
EXAMINATION TYPE: Axial Bone Density DATE OF EXAM: 07/24/2024 CLINICAL HISTORY: 79 years old Female. ICD-10 CODE: M89.9 DISORDER OF BONE, UNSPECIFI , Additional History: Height: 5 ft 1 in Weight: 158 FRAX RISK QUESTIONS: Alcohol (3 or more units per day): no Family History (Parent hip fracture): no Glucocorticoids (More than 3mos): no (Ex: prednisone, prednisolone, methylprednisolone, dexamethasone, and hydrocortisone). History of Fracture in Adulthood: yes Secondary Osteoporosis: 1. Type 1 Diabetes: no 2. Hyperthyroidism: no 3. Menopause before 45: no 4. Malnutrition: no 5. Chronic liver disease: no Rheumatoid Arthritis: no Current Tobacco Use: no RISK FACTORS HISTORY OF: Surgery to Spine/Hip(right/left)/Wrist (right/left): irena carpal tunnel MEDICATIONS: Thyroid Medications: none Osteoporosis Medications: yes Which medication: fosamax How Lon years EXAM MEASUREMENTS: Bone mineral densitometry was performed using the CIV[employer] System. Bone mineral density as measured about the Lumbar spine is: ----- L1-L4(G/cm2): 1.281 T Score Values are as follows: ----- L1: -0.2 ----- L2: 0.9 ----- L3: 1.5 ----- L4: 1.1 ----- L1-L4: 0.8 Z Score Values are as follows: ----- L1: 1.4 ----- L2: 2.5 ----- L3: 3.1 ----- L4: 2.7 ----- L1-L4: 2.5 Bone mineral density has: decreased -1.3 % since study of: 2021 Bone mineral density about the R hip (g/cm2): 0.915 Bone mineral density about the L hip (g/cm2): 0.872 T Score values are as follows: -----R Neck: -0.9 -----L Neck: -1.2 -----R Total: -0.5 -----L Total: -1.0 Z Score values are as follows: -----R Neck: 1.1 -----L Neck: 0.8 -----R Total: 1.4 -----L Total: 0.9 Bone mineral density has: decreased -2.8 % since study of: 2021 FRAX%s: The graph provided illustrates a 17.6 % chance for a major osteoporotic fx and a 3.3 % chance for the hips probability for fx in 10 years time. IMPRESSION: Osteopenia (T Score between -2.5 and -1). There is slightly increased risk of fracture and the patient may be considered for treatment. Re-Screen 2-5 years. NOTE: T-SCORE=SD OF THE YOUNG ADULT MEAN. [facility], , 07/24/2024 3:17 PM
--- NOTE | 2024-07-25 17:21 | MM ---
Reason for Exam: Screening (asymptomatic). Last mammogram was performed 2 year(s) and 0 month(s) ago. Patient History: Menarche at age 12. First Full-Term at age 16. Left ovary removed at age 59. Right ovary removed at age 59. Hysterectomy at age 71. Postmenopausal. Patient has history of breast feeding. Other cancer, age 29. Patient used Estrogen for 2 years. Patient used Progesterone for 2 years. Risk Values: María 5 year model risk: 1.2%. NCI Lifetime model risk: 1.8%. Prior Study Comparison: 04/16/2020 Bilateral Screening Mammogram, [facility]. 06/30/2021 Bilateral Screening Mammogram, [facility]. 07/30/2022 Bilateral MG 3D screening mammo w/cad, [facility]. Tissue Density: There are scattered areas of fibroglandular density. Findings: Analyzed By CAD. Redemonstrated benign vascular and oil cyst calcifications. There is no suspicious group of microcalcifications or new suspicious mass in either breast. Overall Assessment: Benign, BI-RAD 2 Management: Screening Mammogram of both breasts in 1 year. . Patient should continue monthly self-breast exams. A clinical breast exam by your physician is recommended on an annual basis. This exam should not preclude additional follow-up of suspicious palpable abnormalities. Note on María scores and lifetime risk: 1. A María score greater than 3% is considered moderate risk. If this is the case, consider specialist referral to assess eligibility for a risk reducing agent. 2. If overall lifetime risk for the development of breast cancer is 20% or higher, the patient may qualify for future screening with alternating mammogram and breast MRI. [facility], , 07/25/2024 5:18 PM. Electronically signed and approved by: Shereen Stock M.D. Radiologist
== END | disposition home or self-care (01) ==
LOC: RADMAMWWP 12:08
PROVIDERS: ATTEND Family Medicine
DX: Z12.31 Encounter for screening mammogram for malignant neoplasm of breast (principal); M89.9 Disorder of bone, unspecified; M81.8 Other osteoporosis without current pathological fracture
CPT/HCPCS: 77063; 77067; 77080